=== PATIENT | male | born 1950 | race Caucasian/White ===

== ENCOUNTER 2016-11-22 06:55 | Outpatient (CLI) | payer BC ==
[~2016-11-22] VITALS: Ht 177.8 cm; Wt 138.6 kg
--- NOTE | ~2016-11-22 | HEMODYNAMI ---
PATIENT:KENDALL TERRELL MEDICAL RECORD: [id number] : 54 LOCATION:[facility] ADMISSION DATE: 11/22/16 Generatedon:11/22/20169:57 Patient name: KENDALL TERRELL Patient #: [id number] SSN: D OB: 1950 Date of study: 11/22/2016 Page: Of Hemodynamic Procedure Report Patient Data Patient Demographics Procedure consent was obtained First Name: KENDALL Gender: Male Last Name: XANDER : 1950 Middle Initial: A Age: 66 year(s) Patient #: [id number] Race: Ethnicity: or Additional ID: [id number] Contact details [address]: [address] [place] [address] State: [place] City: [place] Zip code: [address] Past Medical History Allergies: No known allergies Admission Admission Data Admission Date: 11/22/2016 Admission Time: 6:55 Admit Source: Other Lab Results Lab Result Date: 11/22/2016 Lab Result Time: 0:00 Biochemistry Name Units Result Min Max BUN mg/dl 16 --(---*)-- 7 18 Creatinine mg/dl 1.1 --(--*-)-- 0.6 1.3 CBC Name Units Result Min Max Hemoglobin g/dl 14.6 --(-*--)-- 13.5 17.5 Procedure Procedure Types Cath Procedure Diagnostic Procedure C [facility] w/Coronaries Miscellaneous Procedures Moderate Sedation up to 15 minutes Procedure Description Procedure Date Procedure Date: 11/22/2016 Procedure Start Time: 9:35 Procedure End Time: 9:55 Procedure Staff Name Function Jefry Cabrera MD Performing Physician Alber Zee RN Nurse Valentín Hernandez RT Monitor Matthew Roger RT Scrub Pamela Hanks RT Monitor Procedure Data Cath Procedure Fluoroscopy Diagnostic fluoroscopy Total fluoroscopy Time: 2.5 time: 2.5 min min Diagnostic fluoroscopy Total fluoroscopy dose: 894 dose: 894 mGy mGy Contrast Material Contrast Material Type Amount (ml) Isovue 300 68 Entry Location Entry Primary Successful Side Size Upsize Upsize Entry Closure Ram ccessful Closure Location (Fr) 1 (Fr) 2 (Fr) Remarks Device Remarks Radial Right 6 Fr Mechanical TR band artery Short Compression Estimated blood loss: 10 ml Diagnostic catheters Device Type Used For End Catheter Placement Cordis RBL 4 catheter (NO Ventriculography CHARGE) Procedure Complications No complications Procedure Medications Medication Administration Route Dosage Oxygen NC 2 l/min Lidocaine 2% added to field 20 Heparin Flush Bag added to field 2 bags (1000units/500ml NS) 0.9% NaCl I.V. 100 ml/hr Radial Cocktail added to field 1 syringe (Verapomil 2mg/Nitro 400mcg/Heparin 1500units) Versed I.V. 1 mg Fentanyl I.V. 50 mcg Versed I.V. 1 mg Fentanyl I.V. 50 mcg Radial Cocktail added to field 1 syringe (Verapomil 2mg/Nitro 400mcg/Heparin 1500units) Versed I.V. 1 mg Fentanyl I.V. 50 mcg Versed I.V. 1 mg Fentanyl I.V. 50 mcg Hemodynamics Rest HGB: 14.6 (g/dl) Heart Rate: 63 (bpm) Pressure Samples Time Site Value (mmHg) Purpose Heart Use Rate(bpm) 9:42 LV 158/-1,16 Snapshot 46 9:42 LV 153/0,23 Snapshot 53 Gradients Valve Time Site Site Mean SEP/DFP Peak To Heart Use 1 2 (mmHg) (sec/min) Peak Rate (mmHg) (bpm) Aortic 9:43 LV AO 45 Snapshots Pre Cath Intra NCS Post Cath Vital Signs Time Heart Resp SPO2 NIBP (mmHg) Rhythm Pain Sedation Rate (ipm) (%) Status Level (bpm) 9:14:40 63 20 96 140/89(123) NSR 0 (11) 10(A) , No pain 9:18:54 68 15 98 141/83(109) NSR 0 (11) 10(A) , No pain 9:23:10 58 16 95 136/86(110) NSR 0 (11) 10(A) , No pain 9:27:22 59 17 94 137/83(114) NSR 0 (11) 10(A) , No pain 9:31:36 66 15 95 138/87(112) NSR 0 (11) 10(A) , No pain 9:35:52 62 16 95 134/83(108) NSR 0 (11) 10(A) , No pain 9:40:08 65 16 95 138/81(119) NSR 0 (11) 9(A) , No pain 9:44:24 71 16 94 122/77(106) NSR 0 (11) 9(A) , No pain 9:48:34 72 17 94 130/83(99) NSR 0 (11) 9(A) , No pain 9:52:46 67 15 95 132/81(108) NSR 0 (11) 10(A) , No pain Medications Time Medication Route Dose Verified Delivered Reason Notes E ffectiveness by by 9:24:23 Oxygen NC 2 l/min Jefry Buffie used for Rick Zee RN procedure 9:24:32 Lidocaine 2% added 20ml Jefry Jefry for local to vial Rick Cabrera MD anesthetic field 9:24:39 Heparin Flush added 2 bags Jefry Jefry used for Bag to Rick Cabrera MD procedure (1000units/500ml field NS) 9:24:49 0.9% NaCl I.V. 100 Jefry Buffie Per ml/hr Rick Zee RN physician 9:24:56 Radial Cocktail added 1 Jefry Buffie (Verapomil to syringe Rick Zee RN 2mg/Nitro field 400mcg/Heparin 1500units) 9:31:40 Versed I.V. 1 mg Jefry Buffie for sedation Rick Zee RN 9:31:46 Fentanyl I.V. 50 mcg Jefry Buffie for sedation Rick Zee RN 9:36:56 Versed I.V. 1 mg Jefry Buffie for sedation Rick Zee RN 9:37:00 Fentanyl I.V. 50 mcg Jefry Buffie for sedation Rick Zee RN 9:41:21 Radial Cocktail added 1 Jefry Jefry for (Verapomil to syringe Rick Cabrera MD vasodilation 2mg/Nitro field 400mcg/Heparin 1500units) 9:41:26 Versed I.V. 1 mg Jefry Buffie for sedation Rick Zee RN 9:41:29 Fentanyl I.V. 50 mcg Jefry Buffie for sedation Rick Zee RN 9:47:05 Versed I.V. 1 mg Jefry Buffie for sedation Rick Zee RN 9:47:09 Fentanyl I.V. 50 mcg Jefry Amarilisie for sedation Rick Zee certified energy manager Log Time Note 9:00:06 Informed consent obtained and on chart 9:00:11 Diagnostic Cath Status : Elective 9:00:47 Admit Source: Other 9:01:11 ACC Patient presents with Stable Angina CCS Anginal Class 1--Ordinary physical activity does not cause angina, angina occurs with strenuos, rapid, or prolonged activity.. 9:01:18 Valentín Hernandez RT(R) (CV) sent for patient. Start room use. 9:01:20 Time tracking: Regular hours 9:01:30 Plan of Care:Hemodynamics will remain stable., Cardiac rhythm will remain stable., Comfort level will be maintained., Respiratory function will remain adequate., Patient/ family verbilizes understanding of procedure., Procedure tolerated without complication., Recovers from procedure without complications.. 9:09:24 Patient received from Pre/Post Procedure Room to CCL 2 Alert and oriented. Tansferred to table in Supine position. 9:09:26 Warm blankets applied, and hosea hugger turned on for patient comfort. 9:09:28 Correct patient and procedure confirmed by team. 9:13:34 ECG and BP/O2 sat monitors applied to patient. 9:13:35 Vital chart was started 9:13:42 Baseline sample Acquired. 9:14:08 Rhythm: sinus rhythm 9:14:15 Full Disclosure recording started 9:14:34 H&P Date Dictated: 11/21/2016 Within 30 days and on chart., H&P Addendum completed by physician on day of procedure. (MUST COMPLETE FOR ALL OUTPATIENTS). 9:14:36 Pre-procedure instructions explained to patient. 9:14:38 Pre-op teaching completed and patient verbalized understanding. 9:14:40 Family in waiting room. 9:14:42 Patient NPO since Midnight. 9:14:51 Patient allergic to No known allergies 9:15:01 Is the patient allergic to Iodine/contrast media? No. 9:15:11 Is patient on blood thinner?No 9:15:15 Patient diabetic? No. 9:15:32 Previous problem with sedation/anesthesia? No ? 9:15:35 Snore? Yes 9:15:36 Sleep apnea? Yes 9:15:38 Deviated septum? No 9:15:39 Opens mouth fully? Yes 9:15:41 Sticks out tongue? Yes 9:15:44 Airway obstruction? No ? 9:15:47 Dentures? No ? 9:17:01 Pre procedure: right dorsailis pedis pulse 1+ Palpable, but thready & weak; easily obliterated 9:17:08 Modified Rosendo's test Ulnar > 7 seconds. 9:17:12 Patient pain scale 0/10 ?. 9:17:19 IV patent on arrival in left hand with 0.9% NaCl at [facility]. 9::51 Lab Result : Creatinine 1.1 mg/dl 9::51 Lab Result : BUN 16 mg/dl 9::51 Lab Result : Hemoglobin 14.6 g/dl 9:21:57 Lab results completed and on chart. 9:22:03 Right Radial & Right Groin area was prepped with chlora-prep and draped in sterile fashion 9:22:05 Alarms reviewed by R. N. 9:22:06 Sharps counted by scrub and verified by R.N. 9:22:23 Use device set Radial Dx 9:22:28 Acist Syringe opened to sterile field. 9:22:28 Medline Cath Pack opened to sterile field. 9:22:30 Bag Decanter opened to sterile field. 9:22:31 Terumo 6Fr Slender Glidesheath opened to sterile field. 9:22:32 St Martin 260cm J .035 wire opened to sterile field. 9:22:33 Acist Hand Control opened to sterile field. 9:22:34 Acist Manifold opened to sterile field. 9:22:36 Tegaderm 4 x 4 opened to sterile field. 9:24:23 Oxygen 2 l/min NC was administered by Alber Zee RN; used for procedure; 9:24:32 Lidocaine 2% 20ml vial added to field was administered by Jefry Cabrera MD; for local anesthetic; 9:24:39 Heparin Flush Bag (1000units/500ml NS) 2 bags added to field was administered by Jefry Cabrera MD; used for procedure; 9:24:49 0.9% NaCl 100 ml/hr I.V. was administered by Alber Zee RN; Per physician; 9:24:56 Radial Cocktail (Verapomil 2mg/Nitro 400mcg/Heparin 1500units) 1 syringe added to field was administered by Alber Zee RN; ; 9:31:02 Physician arrived 9::19 --------ALL STOP TIME OUT------ 9:31:20 Final Timeout: patient, procedure, and site verified with staff and physician. All members of the team are in agreement. 9::22 Right Radial & Right Groin site verified by team. 9:: Physical assessment completed. ASA score P 2 - A patient with mild systemic disease as per Jefry Cabrera MD. ::31 Sedation plan: IV Moderate Sedation Versed, Fentanyl 9::40 Versed 1 mg I.V. was administered by Alber Zee RN; for sedation; 9::46 Fentanyl 50 mcg I.V. was administered by Alber Zee RN; for sedation; 9:35:27 Zero performed for pressure channel P1 9:35:38 Procedure started. 9:35:52 Local anesthetic to right radial artery with Lidocaine 2% by Jefry Cabrera MD.INITIAL ACCESS ONLY 9:36:56 Versed 1 mg I.V. was administered by Alber Zee RN; for sedation; 9:36:58 Zero performed for pressure channel P1 9:37:00 Fentanyl 50 mcg I.V. was administered by Alber Zee RN; for sedation; 9:38:31 Cook 21G 4cm Radial Needle opened to sterile field. 9:38:49 A 6 Fr Short sheath was inserted into the Right Radial artery 9:41:21 Radial Cocktail (Verapomil 2mg/Nitro 400mcg/Heparin 1500units) 1 syringe added to field was administered by Jefry Cabrera MD; for vasodilation; 9:41:26 Versed 1 mg I.V. was administered by Alber Zee RN; for sedation; 9:41:29 Fentanyl 50 mcg I.V. was administered by Alber Zee RN; for sedation; 9:44:12 A Cordis RBL 4 catheter (NO CHARGE) was advanced over the wire and used for Ventriculography. 9:44:17 LV gram done using ENCISO 9:44:23 EF : 50 % 9:44:28 LCA angiography performed. 9:47:05 Versed 1 mg I.V. was administered by Alber Zee RN; for sedation; 9:47:09 Fentanyl 50 mcg I.V. was administered by Alber Zee RN; for sedation; 9:47:31 RCA angiography performed. 9:52:04 Catheter removed. 9:52:37 Terumo TR Band Large opened to sterile field. 9:52:55 Sheath removed intact; hemostasis achieved with Mechanical Compression to the Right Radial artery. 9:52:58 Procedure ended.(Physican Out) 9:53:15 Fluoroscopy time 02.50 minutes. 9:53:22 Fluoroscopy dose: 894 mGy 9:53:22 Flurop Dose total: 894 9:53:28 Contrast amount:Isovue 300 68ml. 9:53:29 Sharps counted by scrub and verified by R.N. 9:53:33 TR band inflated with 12cc of air. 9:53:35 Insertion/operative site no bleeding no hematoma. 9:53:44 Post Procedure Pulses reassessed and unchanged 9:53:50 Post-procedure physical assessment completed. ASA score P 2 - A patient with mild systemic disease as per Jefry Cabrera MD. 9:53:53 Post procedure rhythm: unchanged. 9:53:56 Estimated blood loss: 10 ml 9:53:59 Post procedure instruction explained to patient.Patient verbalizes understanding. 9:54:10 Procedure type changed to Cath procedure, Diagnostic procedure, LHC, LHC w/Coronaries, Miscellaneous Procedures, Moderate Sedation up to 15 minutes 9:54:12 Procedure and supply charges have been captured, reviewed, submitted and are correct. 9:55:03 Procedure Complication : No complications 9:55:06 Vital chart was stopped 9:55:11 See physician's report for complete and final results. 9:55:18 Report given to Pre/Post Procedure Room. 9:55:38 Patient transfered to Pre/Post Procedure Room with Stretcher. 9:55:41 Procedure ended. 9:55:41 Full Disclosure recording stopped 9:55:45 End room use (Document Last) Device Usage Item Name Manufacture Quantity Catalog Hospital Part Current Minimal Lot# / Number Charge Number Stock Stock Serial# Code Acist Acist 1 92710 [id number] 163257 178538 20 [employer] Medline Cardinal 1 [id number] 399039 32190 172859 5 Cath Pack Health Bag Microtek 1 2001 145427 92177 215679 5 Decanter [employer] Inc[employer] Terumo 6Fr Terumo 1 [id number] 485076 428369 160050 [address] [facility] Martin 1 950310 079243 029613 077469 30 260cm J .035 wire Acist Hand Acist 1 25660 867023 758880 621407 5 [employer] Inc Acist Acist 1 36197 034993 938236 430158 5 Manifold [employer] Inc Tegaderm 4 3M 1 1626W 560796 681965 675610 5 x 4 Cook 21G Cook Medical 1 [id number] 967356 348955 098410 5 4cm Radial Needle Cordis RBL Cardinal 1 [id number] 181821 229184 5 4 catheter Health (NO CHARGE) Terumo TR Terumo 1 [id number] 194054 323946 119079 40 Band Large Signature Audit [place] Stage Time Signature Unsigned Intra-Procedure 11/22/2016 Pamela Hanks 9:57:37 AM RT(R) Signatures Monitor : Valentín Hernandez RT Signature : Date : Time : Monitor : Pamela Hanks Signature : RT Date : Time : [facility] [address] [place] [address]
[2016-11-22 07:38] VITALS: BP 129/74; Ht 177.8 cm; Wt 138.6 kg
[2016-11-22] MEDS ORDERED: LEVOXYL75 MCG PO (07:42)
[2016-11-22] MEDS ORDERED: PAXIL20 MG PO (07:42)
[2016-11-22] MEDS ORDERED: OMEPRAZOLE20 M1 PO (07:43)
[2016-11-22] MEDS ORDERED: NORVASC2.5 MG PO (07:43)
[2016-11-22] MEDS ORDERED: PRAVACHOL40 MG PO (07:44)
[2016-11-22] MEDS ORDERED: BAYER CHEWABLE81 MG PO (07:44)
[2016-11-22] MEDS ORDERED: ATIVAN1 MG PO (07:44)
[2016-11-22] MEDS ORDERED: NAPROSYN500 MG PO (07:45)
[2016-11-22 08:22] LABS: BASOPHILS 0.4 % (0.0-2.0); EOSINOPHILS 1.6 % (0-7); HEMATOCRIT 43.4 % (42.0-54.0); HEMOGLOBIN 14.6 g/dL (13.5-17.5); IMMATURE GRANULOCYTES 0.2 % (0-5); LYMPHOCYTES 18.1 % (15-50); MCH 31.3 pg (26.0-34.0); MCHC 33.6 g/dL (31.0-37.0); MCV 93.1 fL (80.0-100.0); MEAN PLATELET VOLUME 11.3 fL (7.4-10.4); MONOCYTES 7.6 % (2-11); NEUTROPHILS 72.1 % (40-80); PLATELET COUNT 209 10x3/uL (130-400); RBC 4.66 10x6/uL (4.20-6.10); RDW 12.8 % (11.5-14.5); WBC 9.2 10x3/uL (4.8-10.8)
[2016-11-22 08:32] LABS: ANION GAP 12.7 mmol/L (8-16); CARBON DIOXIDE 27.1 mmol/L (21.0-32.0); CREATININE - SERUM 1.1 mg/dL (0.6-1.3); POTASSIUM - SERUM 3.8 mmol/L (3.5-5.1)
[2016-11-22] MEDS ORDERED: ISOSORBIDE MONO30 M1 PO (10:26)
--- NOTE | 2016-11-22 10:30 | NUR ---
HR 58 BP 118/54 NO DISTRESS NOTED TR BAND TO R/WRIST CDI NO BLEEDING NO HEMATOMA NOTED. INSTRUCTED PATIENT TO KEEP RUE STRAIGHT NO BENDING OR FLEXING OF WRIST
--- NOTE | 2016-11-22 11:00 | NUR ---
1100 RESTING QUIETLY WITH EYES CLOSED RESPIRATIONS EVEN AND UNLABORED VSS WITH NO DISTRESS NOTED TR BAND REMAINS TO R/WRIST CDI NO BLEEDING NO HEMATOMA NOTED 1130 NO CHANGE IN ASSESSMENT CONTINUES TO SLEEP
--- NOTE | 2016-11-22 12:00 | NUR ---
2 CC AIR REMOVED FROM TR BAND WITH NO BLEEDING NO HEMATOMA NOTED CHEST PAIN IS DENIED REPOSITIONED TO SITTING WITH HOB UP 45 DEGREES WITH SANDWICH AND SODA 1230 2 CC AIR REMOVED FROM TR BAND WITH NO BLEEDING NO HEAMTAOM NOTED PATIENT UP TO GET DRESSED FOR DISCHARGE HOME 1300 TR BAND REMOVED WITH NO BLEEDING NO HEMATOMA NOTED. DISCHARGE GONE OVER WITH PATIENT AND LEFT VIA WC TO PARKING
--- NOTE | 2016-11-27 08:17 | OP ---
PATIENT NAME: KENDALL TERRELL MEDICAL RECORD: [id number] :54 LOCATION:D.CAT ADMISSION DATE: SURGEON: JOSEF TEIXEIRA M.D. DATE OF OPERATION: 11/22/2016 Catheterization Report REFERRING PHYSICIAN: Surya Milner MD in [place], [place]. PROCEDURES PERFORMED: 1. Selective coronary angiography. 2. Left heart catheterization with ventriculogram. INDICATION: A 66-year-old gentleman with history of coronary artery disease presents with accelerating angina. EQUIPMENT USED: A 5-Turkmen Wilian catheter. TECHNIQUE: A 6-Turkmen sheath was inserted in retrograde fashion in the right radial artery. Next, selective coronary angiography was performed in standard 5-Turkmen Wilian catheter. Left heart catheterization performed using the Wilian catheter as well. CORONARY ANATOMY: 1. Left main: Left main trunk is moderate in caliber. It gives rise to the LAD and circumflex. There is no significant stenosis. 2. LAD: This is a moderate caliber vessel. It gives rise to a large diagonal branch in the proximal segment. At the bifurcation point, the LAD appears to have an 80% stenosis. At this point, the vessel is diffusely diseased ____. There appeared to be multiple lesions that are 70% to 80%. The first diagonal branch is hazy in some views and appears to have at least a 67% stenosis in the proximal segment. 3. Circumflex: This vessel is small to moderate in caliber. The proximal vessel has an ulcerated 90% stenosis. At this point, it gives rise to 3 small branches. They are all diffusely diseased. 4. Right coronary artery: This vessel is quite large and dominant. It provides the PDA and distal segment. The posterolateral branch has a 70% stenosis just beyond its origin. The proximal mid vessel has mild irregularities, but nothing worse than 30%. 5. Left ventricle: Left ventricle is normal in size. No wall motion abnormalities are noted. 6. Ejection fraction is lower limits of normal around 50%. IMPRESSION: 1. High grade disease involving the LAD and circumflex. 2. Low normal left ventricular function. RECOMMENDATIONS: I suspect these symptoms from the LAD and circumflex. However, the LAD has a quite long lesion. Stenting could be considered. I do have some concerns that the circumflex may be too small for bypass grafting. I will ask Dr. Mclaughlin to review the case. He is not deemed a surgical candidate. We will consider multivessel stenting in that point. TRANSINT:[id number] Voice Confirmation ID: [id number] DOCUMENT ID: [id number] OPERATIVE REPORT [id number] KENDALL TERRELL,JOSEF Wu M.D. at 0817 CC: [id number] DICTATION DATE: 11/22/16 0958 SHEEP HERDER: 11/22/16 1824 [facility] CLI 11/22/16 [id number] [place] [address]
== END 2016-11-22 13:08 | disposition home or self-care (01) ==
LOC: D.CATH 06:55
PROVIDERS: Internal Medicine Cardiovascular Disease
DX: I25.119 Atherosclerotic heart disease of native coronary artery with unspecified angina pectoris (principal); R06.02 Shortness of breath; I10 Essential (primary) hypertension

== ENCOUNTER → 2016-11-28 12:12 | Outpatient (CLI) | payer BC ==
[2016-11-22 07:38] VITALS: BMI 43.8
[~2016-11-28 12:12] MED LIST: ATIVAN1 MG PO; BAYER CHEWABLE81 MG PO; BENADRYL25 MG PO; COLACE100 MG PO; CORDARONE200 MG PO; HEMOCYTE PLUS C1 CAP PO; HYDROCODONE-APA1 TAB PO; ISOSORBIDE MONO30 M1 PO; KLOR-CON 1010 MEQ PO; LASIX40 MG PO; LEVOXYL75 MCG PO; LOPRESSOR25 MG PO; MIRALAX17 GM PO; NAPROSYN500 MG PO; NORVASC2.5 MG PO; OMEPRAZOLE20 M1 PO; PAXIL20 MG PO; PRAVACHOL40 MG PO; SUPER B COMPLE150 MG PO
[2016-11-29 09:18] LABS: HEPATITIS C ANTIBODY <0.1 (0.0-0.9)
== END | disposition home or self-care (01) ==
LOC: D.US 12:12
PROVIDERS: Internal Medicine Cardiovascular Disease
DX: Z01.812 Encounter for preprocedural laboratory examination (principal); I65.23 Occlusion and stenosis of bilateral carotid arteries

== ENCOUNTER 2016-12-04 05:06 | Inpatient (IN) | payer BC ==
--- NOTE | 2016-12-02 12:51 | HP ---
PATIENT: KENDALL TERRELL MEDICAL RECORD: [id number] ACCOUNT: [id number] LOCATION:[facility] : 54 ADMISSION DATE: 12/04/16 HISTORY AND PHYSICAL EXAMINATION NameHILARIA TERRELL (66yo, M) ID# [id number]. Date/Time11/28/2016 10:43BFIXI1952Service Dept.[facility] ClinicProviderEDROB LOMELI MDInsuranceMed Primary: [facility]VANTAGE (PPO) Insurance # : [id number] Policy/Group # : [id number] PCP : RANDY DUARTE Referring Provider Name : RANDY DUARTE Employer Name : [employer] Prescription: MDIM - Member is eligible. Chief Complaint Coronary artery disease Patient's Care Team Primary Care Provider (): RANDY DUARTE: [address] [place], [place] [address], , Referring Provider (): RANDY DUARTE: [address] [place], [place] [address], , Healthcare Management Consultant: JOSEF TEIXEIRA MD Patient's Pharmacies [id number] ([place]): [address], [place] [address], , Vitals BP:100/70 sitting R arm 11/28/2016 10:41 am 102/60 sitting L arm 11/28/2016 10:41 amHR:66R/R 11/28/2016 10:41 amHt:5 ft 10 in 11/28/2016 10:39 amWt:297 lbs 11/28/2016 10:39 amBMI:42.6 11/28/2016 10:39 amAllergies Reviewed Allergies NKDAMedications Reviewed Medications amLODIPine 2.5 mg tiuzgx42/27/17 filledMEDIMPACTaspirin 81mg11/28/16 enteredCindy BrownFluvirin [id number] 45 mcg (15 mcg x 3)/0.5 mL intramuscular hyjcpnkjgt55/17/16 filledMEDIMPACTisosorbide mononitrate ER 30 mg tablet,extended release 24 hr11/22/16 filledMEDIMPACTlevothyroxine 75 mcg svdvvi33/19/17 filledMEDIMPACTLORazepam 0.5 mg kicbxb32/30/16 filledMEDIMPACTLORazepam 1 mg kifcwo76/21/17 filledMEDIMPACTnaproxen 500 mg /20/17 filledMEDIMPACTomeprazole 20 mg capsule,delayed vtfcpoy06/25/17 filledMEDIMPACTomeprazole 40 mg capsule,delayed /21/16 filledMEDIMPACTPARoxetine 20 mg ftomdg78/11/17 filledMEDIMPACTpravastatin 40 mg yqynah33/19/17 filledMEDIMPACTProblems Reviewed Problems Coronary atherosclerosis - Onset: 11/27/2016 Family History Discussed Family History Mother- Myocardial infarctionFather- Malignant tumor of stomachSocial History Discussed Social History Cardiology Family history of heart disease?: Y Smoking Status: Never smoker High Cholesterol: Y HISTORY AND PHYSICAL [id number] KENDALL TERRELL High blood pressure: Y Exercise level: None Diabetes: N Surgical History Reviewed Surgical History Other - gallbladder Other - cyst on neck removed Other - hernia surgery Other - tonsilectomy Past Medical History Discussed Past Medical History Chest Pain: Y Coronary Artery Disease: Y Heart Disease: Y Shortness of Breath: Y Valve disease: Y Documents for Discussion N/A Screening None recorded. HPI Coronary Artery Disease F/U Reported by patient. Severity: chest discomfort with household activities/yard work ("tightness in chest when I am doing something.") Associated Symptoms: chest pain with exertion; dyspnea with exertion angina pectoris ROS Patient reports exercise intolerance but reports no fever, no night sweats, no significant weight gain, and no significant weight loss. He reports chest pain on exertion, arm pain on exertion, and shortness of breath when walking but reports no shortness of breath when lying down, no palpitations, and no known heart murmur. He reports shortness of breath but reports no cough, no wheezing, and no coughing up blood. He reports no dry eyes, no irritation, and no vision change. He reports no difficulty hearing and no ear pain. He reports no frequent nosebleeds and no nose/sinus problems. He reports no sore throat, no bleeding gums, no snoring, no dry mouth, no mouth ulcers, no oral abnormalities, and no teeth problems. He reports no jugular vein distension and no swollen gland s . He reports no abdominal pain, no vomiting, normal appetite, no diarrhea, not vomiting blood, no nausea, and no constipation. He reports no incontinence, no difficulty urinating, no hematuria, and no increased frequency. He reports no muscle aches, no mu s sheila weakness, no arthralgias/joint pain, no back pain, and no swelling in the extremities. He reports no abnormal mole, no jaundice, and no rashes. He reports no loss of consciousness, no weakness, no numbness, no seizures, no dizziness, and no headaches. He reports no depression, no sleep disturbances, feeling safe in relationship, and no alcohol abuse. He reports no fatigue. He reports no swollen glands and no bruising. He reports no runny nose, no sinus pressure, no itching, no hives, and no frequent sn eezing. ROS as noted in the HPI Physical Exam Patient is a 66-year-old male. Constitutional: General Appearance healthy-appearing and obese. Level of Distress NAD. Ambulation ambulating normally. HISTORY AND PHYSICAL [id number] KENDALL TERRELL Cardiovascular: Apical Impulse not displaced or no thrill. Heart Auscultation normal s1 and s2; no murmurs, rubs, or gallops; and RRR. Arterial Pulses no abdominal aorta bruits, femoral bruits, or popliteal bruits and 2+ bilateral, carotid 2+ bilateral, femoral 2+ bilateral, popliteal 2+ bilateral, and dorsalis pedis 2+ bilateral. Edema no edema or varicosities. Lungs: Repiratory Effort no dyspnea. Percussion no hyperresonance or dullness or flatness. Auscultation no wheezing, rhonchi, or rales / crackles and breathing sounds normal, good air movement, and CTA except as noted. Abdomen: Bowl Sounds normal. Inspection and Palpation no tenderness, guarding, masses, or rebound tenderness and soft and non-distended. Liver non-tender and no hepatomegaly. Spleen non-tender and no splenomegaly. Hernia none palpable. Musculoskeletal System: Gait And Stance normal gait and stance. Digits and Nails normal nails and no cyanosis. Neurologic: Cranial Nerves grossly intact. Reflexes DTRs 2+ bilaterally throughout. Sensation grossly intact. Lymph Nodes: Lymph Nodes no cervical LAD, supraclavicular LAD, axillary LAD, or inguinal LAD. Eyes: Lids and Conjunctivae no discharge or pallor and non-injected. Pupils PERRLA. Cornea grossly intact. EOM EOMI. Lens clear. Sclerae non-icteric. Neck: Neck no masses, enlarged lymph nodes, or carotid bruits and supple and trachea midline. Thyroid no enlargement or nodules and non-tender. Skin: Inspection and Palpation no rash, lesions, ulcers, jaundice, or abnormal nevi. Assessment / Plan coronary artery disease with angina pectoris 1. Coronary atherosclerosis I25.119: Atherosclerotic heart disease of [place] coronary artery with unspecified angina pectoris Discussion Notes I have discussed the patient's disease process with him and his in detail as well as the alternative treatment. We discussed coronary artery bypass and the expected benefits and risk which included bleeding ,infection, stroke, , and the imponderables.they understand all of the above and he wishes to proceed with planned surgery. We will obtain carotid Dopplers and hepatitis screen today Return to Office None recorded. HISTORY AND PHYSICAL [id number] KENDALL TERRELL EDWARD MD at 1251 CC: [id number] DICTATION DATE: 11/28/16 1015 STRATEGY CONSULTANT: AIDEN 11/29/16 1243 PRE IN [facility] [address] [facility] [place] [address]
[2016-12-03 15:22] LABS: BASOPHILS 0.4 % (0.0-2.0); HEMATOCRIT 44.2 % (42.0-54.0); HEMOGLOBIN 15.2 g/dL (13.5-17.5); IMMATURE GRANULOCYTES 0.2 % (0-5); LYMPHOCYTES 27.2 % (15-50); MCH 31.8 pg (26.0-34.0); MCHC 34.4 g/dL (31.0-37.0); MCV 92.5 fL (80.0-100.0); MEAN PLATELET VOLUME 10.7 fL (7.4-10.4); MONOCYTES 7.2 % (2-11); RBC 4.78 10x6/uL (4.20-6.10); RDW 12.5 % (11.5-14.5); WBC 9.1 10x3/uL (4.8-10.8)
[2016-12-03 15:29] LABS: PLATELET COUNT 283 10x3/uL (130-400)
[2016-12-03 15:30] LABS: APPEARANCE CLEAR (CLEAR); BILIRUBIN NEGATIVE (NEGATIVE); COLOR YELLOW (YELLOW); GLUCOSE NEGATIVE (NEGATIVE); KETONE NEGATIVE (NEGATIVE); LEUKOCYTE ESTERASE NEGATIVE (NEGATIVE); NITRITE NEGATIVE (NEGATIVE); PROTEIN NEGATIVE (NEGATIVE); UROBILINOGEN NORMAL (NORMAL)
[2016-12-03 15:34] LABS: APTT 27.8 SECONDS (22.8-39.4); INR 1.03 (0.85-1.17); PROTIME 13.4 SECONDS (11.6-15.0)
[2016-12-03 15:45] LABS: HEMOGLOBIN A1C 5.3 % (4.8-6.0)
[2016-12-03 15:49] LABS: ANION GAP 11.1 mmol/L (8-16); BILIRUBIN - TOTAL 0.36 mg/dL (0.2-1.3); CALCIUM 9.1 mg/dL (8.5-10.1); CARBON DIOXIDE 29.2 mmol/L (21.0-32.0); CREATININE - SERUM 1.2 mg/dL (0.6-1.3); PHOSPHOROUS 3.9 mg/dL (2.5-4.9); POTASSIUM - SERUM 4.3 mmol/L (3.5-5.1); PROTEIN - SERUM 7.6 g/dL (6.4-8.2); T4 THYROXIN - FREE 1.11 ng/dL (0.76-1.46); THYROID STIMULATING HORMONE 1.27 uIU/mL (0.36-3.74); URIC ACID 7.6 mg/dL (2.6-7.2)
[2016-12-03 17:30] LABS: COLD SCREEN @ 4 DEGREES 1+ (NEGATIVE); COLD SCREEN ROOM TEMP NEGATIVE (NEGATIVE)
[2016-12-04] VITALS (36 sets, daily range): BP systolic 92–122; BP diastolic 54–84; BMI 42.7
[~2016-12-04] VITALS: Ht 177.8 cm; Wt 138.7 kg
[~2016-12-04 05:06] MED LIST changes: -BENADRYL25 MG PO; -COLACE100 MG PO; -CORDARONE200 MG PO; -HEMOCYTE PLUS C1 CAP PO; -HYDROCODONE-APA1 TAB PO; -KLOR-CON 1010 MEQ PO; -LASIX40 MG PO; -LOPRESSOR25 MG PO; -MIRALAX17 GM PO; -SUPER B COMPLE150 MG PO
[2016-12-04] MEDS ORDERED: SUPER B COMPLE150 MG PO (06:00)
[2016-12-04] MEDS ORDERED: BENADRYL25 MG PO (06:01)
[2016-12-04 08:57] LABS: PLT FUNCT.(P2Y12) PLAVIX 233 PRU (194-418)
[2016-12-04 15:13] LABS: CALCIUM 7.7 mg/dL (8.5-10.1); CARBON DIOXIDE 26.9 mmol/L (21.0-32.0); CHLORIDE - SERUM 106 mmol/L (98-107); SODIUM 146 mmol/L (136-145); UREA NITROGEN 11 mg/dL (7-18); eGFR NON AFRICAN AMERICAN 80 mL/min (90-120)
[2016-12-04 15:18] LABS: CALC OSMOLALITY 295 mosm/kg (275-300); GLUCOSE 213 mg/dL (74-106); POTASSIUM - SERUM 3.6 mmol/L (3.5-5.1)
[2016-12-04 15:20] LABS: HEMOGLOBIN 12.8 g/dL (13.5-17.5); MCH 31.1 pg (26.0-34.0); MCHC 33.7 g/dL (31.0-37.0); MCV 92.5 fL (80.0-100.0); MEAN PLATELET VOLUME 10.8 fL (7.4-10.4); RBC 4.11 10x6/uL (4.20-6.10); RDW 12.6 % (11.5-14.5); WBC 28.1 10x3/uL (4.8-10.8)
[2016-12-04 15:21] LABS: APTT 33.8 SECONDS (22.8-39.4); INR 1.44 (0.85-1.17); PROTIME 17.5 SECONDS (11.6-15.0)
--- NOTE | 2016-12-04 15:37 | NUR ---
RECIEVED PT TO ROOM. ASSESSMENT PER FLOWSHEET. DR LOMELI HERE.
--- NOTE | 2016-12-04 16:30 | NUR ---
FLUID CHALLENGE STARTED PER ORDER.
--- NOTE | 2016-12-04 18:30 | NUR ---
DR LOMELI UPDATED ON PT AND UPDATED ABGS RESULTED. NO NEW ORDERS OBTAINED.
--- NOTE | 2016-12-04 19:16 | NUR ---
REPORT RECIEVED. ASSESSMENT COMPLETE PER FLOW SHEET. PT AWAKE ALERT DISORIENTED TO TIME AND SITUATION. ETT PATENT SIZE 8 LIP LINE LEFT AT 26 AT LIP OGT TO LIS GREEN BILE NOTED. ORAL ENDOTRACH CARE ADM. EYES PERRLA 3MM BRISK. VENT SIMV RR 6 O2 40% TV 700 PEEP 5 PT RR 18 O2 SAT 98% RUL RML JC CRACKLES HEARD BILAT LOWER LOBES DEMINISHED. HEART S1S2 HR 100 PACED TPM PATENT DRSG CDI MIDSTERNAL DRSG CDI TPM DDD RATE OF 100 AV INTERVAL 140, AMA 10 VMA 10 SENSITIVITY 2.0. L SUBCLAVIAN PATENT DRSG CDI REFER TO INFUSION SHEET FOR COMPLETE INFUSIONS. L IJ SWAN LACEY PATENT DRSG AT 55CM LOCKED AND SECURED. R RADIAL ART LINE WITH GOOD WAVE FORM EXTREMETY PINK WITH GOOD SENSATION WRIST PROTECTOR ON DRSG CDI. R BRACHIAL PULSE PALP +2 L RADIAL PULSE PALP +2 BILAT PEDAL PULSES FOUND VIA DOPPLER BILAT LOWER EXTREMETIES GENERALIZED EDEMA NOTED ELEVATED ON PILLOWS. R LEG FUENTES X2 NOTED BLOODY DRAINAGE NOTED. DRSG CDI. L LEG ARNALDO SCD ON. SUBSTERNAL CT X3 NOTED BLOODY DRAINAGE NOTED. BRUNSON PATENT SAMMY URINE NOTED. REPOSITIONED ON R SIDE. VSS. WILL CONTINUE TO MONITOR.
--- NOTE | 2016-12-04 19:40 | NUR ---
PT PLACED ON CPAP TRIAL TOLERATING WELL RR 18 RESP AT BEDSIDE. ORAL ENDOTRACH CARE ADM.
--- NOTE | 2016-12-04 20:24 | NUR ---
RESP AT BEDSIDE. ABG OBTAINED K 3.5 WILL INFUSE PER PROTOCOL. NIFF AND VC PASS PER RT. ORAL ENTRACH CARE ADM. OGT TO SUCTION NO OP. OGT AND ETT REMOVED C/O DIFFICULTY. O2 SAT 98% RR 22.
--- NOTE | 2016-12-04 21:20 | NUR ---
PT C/O OF NAUSEA GIEN PRN ZOFRAN AND REGLAN.
--- NOTE | 2016-12-04 23:29 | NUR ---
REASSESSMENT COMPLETE PER FLOW SHEET. NO NEW FINDINGS. VSS. RT AT BEDSIDE. STRONG COUGH/DEEP BREATHE ADM. IS ENCOURAGED. WILL CONTINUE TO MONITOR.
[2016-12-05] VITALS (72 sets, daily range): BP systolic 90–133; BP diastolic 48–78
--- NOTE | 2016-12-05 00:22 | NUR ---
ABGS OBTAINED LABS REVIEWED. POTASSIUM 4.0. WILL TX. HCT 32. NO INTERVENTION AT THIS TIME. WILL CONTINUE TO MONITOR.
--- NOTE | 2016-12-05 01:40 | NUR ---
REPOSITIONED ON L SIDE. COUGH DEEP BREATH IS ENCOURAGED GOAL 1250 MET. VSS NO NEW CHANGES WILL COTNINUE TO MONITOR.
--- NOTE | 2016-12-05 03:05 | NUR ---
RADIOLOGY AT BEDSIDE.
--- NOTE | 2016-12-05 03:40 | NUR ---
REASSESSMENT COMPLETE PER FLOW SHEET. VSS. NO NEW CHANGES .WILL CONTINUE TO MONITOR.
--- NOTE | 2016-12-05 04:48 | NUR ---
REPOSITIONED ON R SIDE PER REQUEST. NO NEW FINDINGS. VSS. WILL CONTINUE TO MONITOR.
--- NOTE | 2016-12-05 05:21 | NUR ---
REPOSITIONED ON R SIDE. VSS. STRONG COUGH DEEP BREATHE ADM. IS ENCOURAGED GOAL 1250 MET.
[2016-12-05 06:03] LABS: HEMATOCRIT 32.6 % (42.0-54.0); HEMOGLOBIN 10.7 g/dL (13.5-17.5); MCH 30.7 pg (26.0-34.0); MCHC 32.8 g/dL (31.0-37.0); MCV 93.4 fL (80.0-100.0); MEAN PLATELET VOLUME 10.7 fL (7.4-10.4); RBC 3.49 10x6/uL (4.20-6.10); RDW 12.8 % (11.5-14.5)
[2016-12-05 06:34] LABS: WBC 18.3 10x3/uL (4.8-10.8)
--- NOTE | 2016-12-05 06:34 | NUR ---
L SUBCLAVIAN DRSG CHANGE ADM. NO NEW CHANGES. REFUSES BATH AND LINEN CHANGE AT THI TIME. VSS. WILL CONTINUE TO MONITOR.
[2016-12-05 06:56] LABS: ALBUMIN 3.9 g/dL (3.4-5.0); BILIRUBIN - TOTAL 0.5 mg/dL (0.2-1.3); CALCIUM 8.1 mg/dL (8.5-10.1); CARBON DIOXIDE 27.3 mmol/L (21.0-32.0); CREATININE - SERUM 1.2 mg/dL (0.6-1.3)
[2016-12-05 06:58] LABS: POTASSIUM - SERUM 4.3 mmol/L (3.5-5.1)
--- NOTE | 2016-12-05 07:30 | NUR ---
SHIFT ASSESSMENT VIA FLOWSHEET, SEE FOR DETAILS.
--- NOTE | 2016-12-05 09:04 | NUR ---
AT BEDSIDE, UPDATE PROVIDED. PT AWAKE AND CONVERSING WITH . VSS, PACED ON CM VIA TPM. MACHINE ROOM ENGINEER BUTTON WITHIN REACH AND BEING UTILIZED BY PATIENT.
--- NOTE | 2016-12-05 09:15 | NUR ---
PT STATES HE WOULD LIKE TO TAKE A NAP, BUT IS NERVOUS TO DO SO WITHOUT HIS CPAP MACHINE. HOME CPAP CONNECTED AND PLACED ON PATIENT.
--- NOTE | 2016-12-05 11:40 | NUR ---
PT MOVED TO CVICU VIA BED, MONITORS CONNECTED.
--- NOTE | 2016-12-05 12:03 | NUR ---
AT BEDSIDE, UPDATED.
--- NOTE | 2016-12-05 14:14 | NUR ---
RT AT BEDSIDE FOR BREATHING TREATMENT.
--- NOTE | 2016-12-05 15:00 | NUR ---
UPDATED BY DR LOMELI.
--- NOTE | 2016-12-05 15:15 | NUR ---
REASSESSMENT VIA FLOWSHEET, SEE FOR DETAILS. VSS, PACED ON CM. PT SLEEPING WITH CPAP MASK IN PLACE, SP02 97% ON 4L NC.
[2016-12-05 15:47] LABS: MCH 31.3 pg (26.0-34.0); MCHC 32.9 g/dL (31.0-37.0); MEAN PLATELET VOLUME 10.2 fL (7.4-10.4); RDW 13.1 % (11.5-14.5)
[2016-12-05 15:50] LABS: HEMATOCRIT 24.6 % (42.0-54.0); HEMOGLOBIN 8.1 g/dL (13.5-17.5); RBC 2.59 10x6/uL (4.20-6.10); WBC 11.7 10x3/uL (4.8-10.8)
--- NOTE | 2016-12-05 18:15 | NUR ---
AT BEDSIDE, UPDATE PROVIDED. PT AROUSES TO VOICE. VSS, PACED ON CM.
--- NOTE | 2016-12-05 19:26 | NUR ---
REPORT RECIEVED. ASSESSMENT COMPLETE PER FLOW SHEET. VSS. PT AWAKE ALERT ORIENTED X3. EYES PERRLA 3MM BRISK. O2 VIA NC 4L O2 SAT 97% RR 22 NON LABORED BILAT LUNGS CLEAR. HEART S1S2 HR 100 PACED TPM PATENT DRSG CDI DDD 100 AV INTERVAL 140 SENSITIVITY [address]MA 10. SUBSTERNAL [address] X3 PATENT SEROSANG DRAINAGE NOTED DRSG CDI NO AIR LEAK NOTED. BS ACITVE X4. ABD DISTENDED NON TENDER. BRUNSON PATENT SAMMY URINE NOTED. R LEG DRSG CDI NO REDDNESS SWELLING DRAINAGE NOTED AT SITE. FUENTES X2 NOTED SEROSANG DRAINAGE NOTED COMPRESED. BILAT ARNALDO'S SCD'S ON. R RADIAL A LINE PATENT WITH GOOD WAVEFORM EXTREMETY PINK WITH GOOD SENSATION. R SWAN LACEY PATENT DRSG CDI AT 55 CM LOCKED AN SEUCRED. L SUBCLAVIAN PATENT DRSG CDI. DENIES PAIN OR NEEDS. VSS. WILL CONTINUE TO MONITOR.
--- NOTE | 2016-12-05 21:12 | NUR ---
NO FAMILY AT THIS TIME. TPM AND CT X3 SITE DRSG CHANGE COMPLETE. NO NEW CHANGES. VSS. WILL CONTINUE TO MONITOR.
--- NOTE | 2016-12-05 23:21 | NUR ---
REASSESSMENT COMPLET EPER FLOW SHEET. VSS. NO NEW CHANGES WILL CONTINUE TO MONITOR.
[2016-12-06] VITALS (51 sets, daily range): BP systolic 88–133; BP diastolic 45–75; Ht 177.8 cm; Wt 138.7 kg
--- NOTE | 2016-12-06 01:12 | NUR ---
PT RESTING COMFORTABLY. VSS. NO NEW CHANGES WILL CONTINUE TO MONITOR.
--- NOTE | 2016-12-06 03:27 | NUR ---
REASSESSMENT COMPLET EPER FLOW SHEET. VSS. NO NEW CHANGES. RESP AT BEDSIDE. EKG OBTAINED. NO NEW FINDINGS. WILL CONTINUE TO MONITOR.
--- NOTE | 2016-12-06 03:57 | NUR ---
RADIOLOGY AT BEDSIDE.
--- NOTE | 2016-12-06 04:47 | NUR ---
COMPLETE BB LINEN CHANGE COMPLETE R LEG DRSG CHANGE ADM. NO NEW FINDINGS. VSS. WILL CNOTINUE TO MONITOR.
[2016-12-06 06:16] LABS: HEMATOCRIT 25.7 % (42.0-54.0); HEMOGLOBIN 8.2 g/dL (13.5-17.5); MCH 30.5 pg (26.0-34.0); MCHC 31.9 g/dL (31.0-37.0); MCV 95.5 fL (80.0-100.0); MEAN PLATELET VOLUME 11.1 fL (7.4-10.4); RBC 2.69 10x6/uL (4.20-6.10); RDW 13.5 % (11.5-14.5); WBC 14.3 10x3/uL (4.8-10.8)
[2016-12-06 06:42] LABS: ALBUMIN 4.5 g/dL (3.4-5.0); ANION GAP 13.4 mmol/L (8-16); BILIRUBIN - TOTAL 0.52 mg/dL (0.2-1.3); CALCIUM 8.3 mg/dL (8.5-10.1); CARBON DIOXIDE 27.8 mmol/L (21.0-32.0); CREATININE - SERUM 1.3 mg/dL (0.6-1.3); POTASSIUM - SERUM 4.2 mmol/L (3.5-5.1); PROTEIN - SERUM 6.6 g/dL (6.4-8.2)
--- NOTE | 2016-12-06 07:30 | NUR ---
SHIFT ASSESSMENT VIA FLOWSHEET, SEE FOR DETAILS. VSS. PACED ON CM VIA TPM.
--- NOTE | 2016-12-06 08:41 | TEE ---
PATIENT:KENDALL TERRELL MEDICAL RECORD: [id number] LOCATION:[place] [address] AGE OF PATIENT: 66 ADMISSION DATE: 12/04/16 SEX: M REFERRING PHYSICIAN: INTERPRETING PHYSICIAN: KENDALL HEATH MD TRANSESOPHAGEAL ECHOCARDIOGRAM RADHA CHARGE Y INDICATIONS: CABG PREMEDICATIONS: PATIENT'S RESPONSE PROCEDURE DOPPLER MEASUREMENTS: LVIT LA PA RA LVOT RVOT Asc. Ao AV Gradient Peak AV Mean AV Area MV Gradient Peak MV Mean MV Area INTERPRETATION: Doppler: 2-D: EF 55 +% COLOR FLOW DOPPLER MILD MR, TRACE TR,WHIF PI NORMAL SALINE STUDY: MISCELLANOUS: DIAGNOSIS: PLAN: [employer] Field Coordinator:Jazmine Cabrera Domestic Housekeeper: Jazmine BRIAN COMMENTS: ARMANI PATIENT DATE OF SERVICE: 12/04/2016 Transesophageal echo evaluation of valvular structures during bypass surgery. FINDINGS: 1. Left ventricular chamber size is within normal limits. Left ventricular systolic function is normal. Overall ejection fraction estimated at 60%. 2. Left atrium, right atrium, and right ventricle chamber sizes are within normal limits. TRANSESOPHAGEAL ECHOCARDIOGRAM REPORT [id number] MAIA TERRELL 3. Valvular structures have normal structure and motion. 4. Doppler interrogation reveals mild mitral regurgitation. No other valvular insufficiency or stenosis. 5. No evidence of pericardial effusion or left ventricular thrombus. TRANSINT:[id number] Voice Confirmation ID: [id number] DOCUMENT ID: [id number] at 0841 CC: [id number] DICTATION DATE: 12/04/16 1430 ACCOUNTANT AUDITOR: 12/05/16 0244 [place] [address]
--- NOTE | 2016-12-06 08:50 | NUR ---
CHEST TUBES D/C'D BY DR LOMELI.
--- NOTE | 2016-12-06 09:00 | NUR ---
RT IJ SWAN D/C'D PER ORDER WITH CATH TIP INTACT. RT RADIAL A LINE D/C'D PER ORDER WITH CATH TIP INTACT.
--- NOTE | 2016-12-06 11:15 | NUR ---
PT TRANSFERED TO CHAIR AT BEDSIDE WITH PHYSICAL THERAPY ASSIST.
--- NOTE | 2016-12-06 11:27 | NUR ---
SPOKE WITH LACHELLE CORONA RN REGARDING PT RATE CONVERSION TO A FIB, NEW ORDERS RECEIVED.
--- NOTE | 2016-12-06 12:20 | NUR ---
DR TEIXEIRA HERE TO SEE PATIENT.
--- NOTE | 2016-12-06 12:50 | NUR ---
PT BACK TO BED WITH PHYSICAL THERAPY ASSIST. PT WEAK, TOLERATES TRANSFER WITH NOTED HYPOTENSION.
--- NOTE | 2016-12-06 13:00 | NUR ---
REASSESSMENT VIA FLOWSHEET, SEE FOR DETAILS.
--- NOTE | 2016-12-06 13:54 | NUR ---
PT RESTING WITH EYES CLOSED, AROUSES TO VOICE AND LIGHT TOUCH. PERFORMS I/S AT 750-1000 WITH ENCOURAGEMENT. WEAK, NONPRODUCTIVE COUGH. EDUCATED PATIENT ABOUT THE BENEFITS OF COUGHING AND DEEP BREATHING DURING THE POST OP/RECOVERY PERIOD. PT VERBALIZES UNDERSTANDING. VSS. REQUESTED CPAP TO WEAR DURING NAP.
--- NOTE | 2016-12-06 14:38 | NUR ---
RT AT BEDSIDE FOR BREATHING TREATMENT.
--- NOTE | 2016-12-06 15:15 | NUR ---
AT BEDSIDE, PT AWAKE AND COMMUNICATING. VSS.
--- NOTE | 2016-12-06 15:30 | NUR ---
REASSESSMENT VIA FLOWSHEET, SEE FOR DETAILS.
--- NOTE | 2016-12-06 16:59 | OP ---
PATIENT NAME: KENDALL TERRELL MEDICAL RECORD: [id number] :52 LOCATION:[facility] [facility] ADMISSION DATE:12/04/16 SURGEON: KENNEY MCLAUGHLIN MD DATE OF OPERATION: 12/04/2016 SURGEON: Kenney Mclaughlin MD ANESTHESIA: General endotracheal, Dr. Valentin. OPERATIONS PERFORMED: Aortocoronary artery bypass utilizing the left internal thoracic to the left anterior descending, reverse saphenous vein graft to the first diagonal and reverse saphenous vein graft sequential first obtuse marginal, sequential posterior descending coronary artery. PREOPERATIVE DIAGNOSES: Angina pectoris and severe occlusive coronary artery disease. POSTOPERATIVE DIAGNOSES: Angina pectoris and severe occlusive coronary artery disease. INDICATION FOR OPERATION: Angina pectoris. FINDINGS AT OPERATION: The greater saphenous vein from the right leg was an excellent conduit as was the left internal thoracic artery. The target vessels were all of good caliber and not diffusely diseased. The first obtuse marginal was 1.5 mm. ESTIMATED BLOOD LOSS: Cell Saver was used. DESCRIPTION OF PROCEDURE: After informed consent, adequate preoperative medication evaluation, the patient was brought to the operating room and placed on the table in the supine position. After induction of general endotracheal anesthesia and application of appropriate monitoring devices, the chest, neck, abdomen, and both legs were prepped and draped in a sterile field, utilizing Betadine scrub, alcohol, and Betadine solution. A Betadine-impregnated drape was also used. Saphenous vein was harvested from right thigh through a small transverse incision. The leg was closed over drains utilizing 3-0 Vicryl and skin yamila. A median sternotomy incision was used and dissection carried down the fascia. Hemostasis maintained with electrocautery. The sternum was divided. Innominate vein was identified and protected. Left internal thoracic was taken down and prepared for grafting. The patient was given a calculated dose of heparin, cannulated in standard fashion utilizing 1 aortic, one two-stage cannula in the atrium and inferior vena cava. The patient was placed on cardiopulmonary bypass, cooled to 32 degrees centigrade. The patient was given cardioplegic solution through the aortic root. The patient was given cold intermittent cardioplegic solution throughout the procedure through the root, through the grafts or a combination of both. The first vessel to be grafted was the posterior descending. It was grafted end-to-side utilizing a running 7-0 Prolene suture. The graft was then measured to the first obtuse marginal and a [id number] anastomosis fashioned utilizing a running 8-0 Prolene suture. The graft was then taken to the aorta and a proximal anastomosis fashioned utilizing running 6-0 Prolene suture. Next, the first diagonal was grafted end-to-side utilizing a running 7-0 Prolene suture. Grafts were measured back to the aorta and a proximal anastomosis fashioned utilizing running 6-0 Prolene suture. Next, left internal thoracic was brought through the hole in pericardium, OPERATIVE REPORT [id number] KENDALL TERRELL A sutured left anterior descending end-to-side utilizing a running 8-0 Prolene suture. All maneuvers to remove trapped air were performed. The patient was given warm cardioplegic reperfusion and controlled reperfusion. The patient rewarmed to 37 degrees centigrade. Two atrial and 2 ventricular pacing wires were placed on the heart and brought out through the epigastric area. The patient was weaned cardiopulmonary bypass. After being stable off bypass, he was given calculated dose of protamine to reverse the heparin. Hemostasis was achieved. A #40 right angle and #36 chest tubes were brought in through the epigastric area and placed in mediastinum. A separate left pleural tube was connected to underwater seal and suction. Chest was again irrigated. Instrument count and sponge count were correct times 2. Chest was closed in layers utilizing #7 wire on the sternum, #2 Vicryl in linea alba and pectoralis fascia. Subcutaneous tissue was approximated with 3-0 Vicryl and skin approximated with 3-0 subcuticular Vicryl. Sterile dressings were applied. The patient tolerated the procedure well and was transferred to the ICU in satisfactory condition. TRANSINT:[id number] Voice Confirmation ID: [id number] DOCUMENT ID: [id number] KENNEY MCLAUGHLIN MD at 1659 CC: [id number] DICTATION DATE: 12/04/16 153 RAMP SUPERVISOR: 12/04/162101 ADM IN [facility] [address] [place] [id number]
--- NOTE | 2016-12-06 17:30 | NUR ---
PT REPOSITIONED FOR COMFORT. VSS.
--- NOTE | 2016-12-06 19:15 | NUR ---
REPORT RECVD. CARE ASSUMED. INITIAL ASSMNT COMPLETED. SEE FLOWSHEET FOR ALL FINDINGS. AWAKE AND AOX4. RESTING ON HOME CPAP UNIT. LING SOUNDS DIM IN BASES. SPO2 96%. SR ON THE MONITOR. PULSES PALP. TEMP PM VVI 60. SENSING ONLY. CORDARONE GTT INFUSING AT 0.5MG. AFEBRILE. TEDS/SCDS ON. DENIES PAIN AT THIS TIME. INCENTIVE AND COUGH/DB ENCOURAGED WITH POOR EFFORT. WEAK ENERGY EFFICIENCY ENGINEER COUGH SEEN. REPOSITIONED IN BED FOR COMFORT. HOB UP. C/L IN REACH. CONT CURRENT POC.
--- NOTE | 2016-12-06 21:15 | NUR ---
HS MEDS GIVEN. TURNED AND REPOSITIONED. WEAK JUNIOR ELECTRICAL ENGINEER COUGH NOTED. S[P2 96% ON O2 AT 4 LPM NC. SR ON THE MONITOR. NO VISITORS. PRN NORCO GIVEN TO PROMOTE COMFORT AND FOR INC PAIN LEVEL. HOB UP. C/L IN REACH. CONT CURRENT POC.
--- NOTE | 2016-12-06 23:15 | NUR ---
REASSESSMENT COMPLETED. SEE FLOWSHEET FOR ALL FINDINGS. RESTING ON HOME CPAP UNIT. LUNG SOUNDS DIM IN BASES SPO2 96%. SR ON THE MONITOR. PULSES PALP. TEMP PM VVI 60. SENSING ONLY. CORDARONE GTT INFUSING AT 0.5MG. AFEBRILE. TEDS/SCDS ON. DENIES PAIN AT THIS TIME. INCENTIVE AND COUGH/DB ENCOURAGED WITH POOR EFFORT. WEAK E COMMERCE MARKETING MANAGER COUGH SEEN. ABD SOFT, BSA X4. BLADDER NON PALP, DENIES URGE TO VOID. REPOSITIONED IN BED FOR COMFORT. HOB UP. C/L IN REACH. CONT CURRENT POC.
[2016-12-07] VITALS (24 sets, daily range): BP systolic 101–152; BP diastolic 48–90
--- NOTE | 2016-12-07 01:11 | NUR ---
RESTING WITH EYES CLOSED. NO NEEDS VOICED. VSS. SR ON THE MONITOR. HOB UP. C/L IN REACH. CONT CURRENT POC.
--- NOTE | 2016-12-07 03:11 | NUR ---
REASSESSMENT COMPLETED. SEE FLOWSHEET FOR ALL FINDINGS. RESTING ON HOME CPAP UNIT. LUNG SOUNDS DIM IN BASES SPO2 96%. SR ON THE MONITOR. PULSES PALP. TEMP PM VVI 60. SENSING ONLY. CORDARONE GTT INFUSING AT 0.5MG. AFEBRILE. TEDS/SCDS ON. DENIES PAIN AT THIS TIME. INCENTIVE AND COUGH/DB ENCOURAGED WITH POOR EFFORT. WEAK SENIOR ENGINEERING SPECIALIST COUGH SEEN ABD SOFT, BSA X4. BLADDER NON PALP, ASSISTED TO VOID IN URINAL. REPOSITIONED IN BED FOR COMFORT. HOB UP. C/L IN REACH. CONT CURRENT POC.
--- NOTE | 2016-12-07 05:00 | NUR ---
RETURNED FROM RADIOLOGY VIA W/C WITH NO DIFF. ASSISTED TO CHAIR AT BEDSIDE. PLACED ON ICU MONITORS. SR SEEN. DPO2 92%. INCENTIVE AND COUGH/DB. C/L [LACED IN REACH. CONT CURRENT POC.
[2016-12-07 06:17] LABS: HEMATOCRIT 25.4 % (42.0-54.0); HEMOGLOBIN 8.3 g/dL (13.5-17.5); MCH 31.3 pg (26.0-34.0); MCHC 32.7 g/dL (31.0-37.0); MCV 95.8 fL (80.0-100.0); MEAN PLATELET VOLUME 11.2 fL (7.4-10.4); RBC 2.65 10x6/uL (4.20-6.10); RDW 13.2 % (11.5-14.5); WBC 23.2 10x3/uL (4.8-10.8)
[2016-12-07 06:24] LABS: ANION GAP 12.9 mmol/L (8-16); BILIRUBIN - TOTAL 0.79 mg/dL (0.2-1.3); CALCIUM 8.4 mg/dL (8.5-10.1); CARBON DIOXIDE 27.4 mmol/L (21.0-32.0); CREATININE - SERUM 1.6 mg/dL (0.6-1.3); POTASSIUM - SERUM 4.3 mmol/L (3.5-5.1); PROTEIN - SERUM 6.7 g/dL (6.4-8.2)
--- NOTE | 2016-12-07 10:00 | NUR ---
REMAINS UP TO CHAIR. DENIES CURRENT NEEDS AFTER REPOSITIONED IN CHAIR. ENCOURAGED TO DEEP BREATHE AND COUGH.
--- NOTE | 2016-12-07 10:56 | NUR ---
Is the patient Alert and Oriented? Yes 0 * How many steps to enter\exit or inside your home? 3 0 * PCP DR DUARTE IN [facility]. 0 * Pharmacy [facility] IN [place] 0 * Preadmission Environment Home with Family 0 * ADLs Independent 0 * Equipment CPAP 0 * Other Equipment CPAP AT HOME PROVIDED BY [facility] 0 * List name and contact numbers for known caregivers / representatives who currently or will assist patient after discharge: SPOUSE: BERRY [phone] 0 * Community resources currently utilized None 0 * Additional services required to return to the preadmission environment? No 0 * Can the patient safely return to the preadmission environment? Yes 0 * Has this patient been hospitalized within the prior 30 days at any hospital? No PATIENT IS AWAKE AND ALERT. HE STATES HE WAS INDEPENDENT IN ALL ADL'S PRIOR TO COMING INTO THE HOSPITAL. PATIENT LIVES AT HOME WITH HIS ., BERRY. SHE WILL BE AVAILABLE TO DRIVE HIM HOME AT DISCHARGE. PATIENT'S PCP IS DR. DUARTE IN [place], [place]. PATIENT GETS HIS MEDS FROM [facility] IN [place]. PATIENT HAS A CPAP MACHINE THAT IS PROVIDED BY [facility]. PATIENT DENIES [facility] HAV[facility] HOME HEALTH. THERE ARE 3 STEPS TO ENTER HIS HOME. PATIENT PLANS TO RETURN HOME WITH HIS AT DISCHARGE.
--- NOTE | 2016-12-07 17:45 | NUR ---
NOTIFIED DR. LOMELI OF INCREASED BLADDER RESIDUAL OF 850 ML. WILL ATTEMPT TO LET PT URINATE AGAIN BEFORE IN AND OUT CATH.
--- NOTE | 2016-12-07 19:20 | NUR ---
REPORT RECVD. CARE ASSUMED. INITIAL ASSMNT COMPLETED. SEE FLOWSHEET FOR ALL FINDINGS. AWAKE AND AOX4. RESTING ON HOME CPAP UNIT. UP IN CHAIR AT BEDSIDE. LUNG SOUNDS DIM IN BASES. SPO2 96%. SR ON THE MONITOR. PULSES PALP. TEMP PM VVI 60. SENSING ONLY. CORDARONE GTT INFUSING AT 0.5MG. AFEBRILE. TEDS/SCDS ON. DENIES PAIN AT THIS TIME. INCENTIVE AND COUGH/DB ENCOURAGED WITH POOR EFFORT. OCC PROD COUGH SEEN. REPOSITIONED IN BED FOR COMFORT. HOB UP. C/L IN REACH. CONT CURRENT POC.
--- NOTE | 2016-12-07 23:20 | NUR ---
REASSESSMENT COMPLETED. SEE FLOWSHEET FOR ALL FINDINGS. RESTING ON HOME CPAP UNIT. LUNG SOUNDS DIM IN BASES SPO2 96%. SR ON THE MONITOR. PULSES PALP. TEMP PM VVI 60. SENSING ONLY. AFEBRILE. TEDS/SCDS ON. DENIES PAIN AT THIS TIME. INCENTIVE AND COUGH/DB ENCOURAGED WITH POOR EFFORT. OCC COUGH SEEN ABD SOFT, BSA X4. BLADDER NON PALP, VOIDING TO URINAL. REPOSITIONED IN BED FOR COMFORT. HOB UP. C/L IN REACH. CONT CURRENT POC.
[2016-12-08] VITALS (23 sets, daily range): BP systolic 107–144; BP diastolic 41–87
--- NOTE | 2016-12-08 01:15 | NUR ---
RESTING WITH NO DISTRESS ON HOME CPAP. SR ON THE MONITOR. C/L IN REACH. CONT CURRENT POC.
--- NOTE | 2016-12-08 04:00 | NUR ---
BATH GIVEN. LINENS AND DRESSINGS CHANGED.
--- NOTE | 2016-12-08 05:04 | NUR ---
UP TO W/C FOR CHEST XRAY. RETURNED NO DISTRESS. ASSISTED TO CHAIR AT BEDSIDE. VSS. C/L IN REACH. CONT POC.
[2016-12-08 07:05] LABS: HEMATOCRIT 24.9 % (42.0-54.0); HEMOGLOBIN 7.9 g/dL (13.5-17.5); MCH 30.3 pg (26.0-34.0); MCHC 31.7 g/dL (31.0-37.0); MCV 95.4 fL (80.0-100.0); MEAN PLATELET VOLUME 11.5 fL (7.4-10.4); RBC 2.61 10x6/uL (4.20-6.10); RDW 13.1 % (11.5-14.5); WBC 22.6 10x3/uL (4.8-10.8)
[2016-12-08 07:09] LABS: ALBUMIN 3.7 g/dL (3.4-5.0); BILIRUBIN - TOTAL 0.61 mg/dL (0.2-1.3); CALCIUM 8.4 mg/dL (8.5-10.1); CARBON DIOXIDE 27.7 mmol/L (21.0-32.0); CREATININE - SERUM 1.4 mg/dL (0.6-1.3); POTASSIUM - SERUM 3.7 mmol/L (3.5-5.1)
--- NOTE | 2016-12-08 07:47 | NUR ---
K+ LEVEL TREATED PER ORDERS
--- NOTE | 2016-12-08 09:20 | NUR ---
FAMILY AT BEDSIDE. UPDATE GIVEN. NO CURRENT NEEDS.
--- NOTE | 2016-12-08 12:13 | NUR ---
FAMILY AT BEDSIDE. PT EATING LUNCH.
--- NOTE | 2016-12-08 18:21 | NUR ---
DRESSINGS CHANGED. BED LINENS CHANGED. FAMILY AT BEDSIDE. UPDATE GIVEN. NO FURTHER QUESTIONS.
--- NOTE | 2016-12-08 19:20 | NUR ---
REPORT RECVD. CARE ASSUMED. INITIAL ASSMNT COMPLETED. SEE FLOWSHEET FOR ALL FINDINGS. AWAKE AND AOX4. RESTING IN BED ON O2 AT 4 LPM LUNG SOUNDS DIM IN BASES. SPO2 96% SR ON THE MONITOR. PULSES PALP. TEMP PM VVI 60. SENSING ONLY. AFEBRILE. TEDS/SCDS ON. DENIES PAIN. VOIDING TO URINAL. INCENTIVE AND COUGH/DB ENCOURAGED WITH GOOD EFFORT. OCC PROD COUGH SEEN. REPOSITIONED IN BED FOR COMFORT. HOB UP. C/L IN REACH. CONT CURRENT POC.
--- NOTE | 2016-12-08 21:30 | NUR ---
HS MEDS GIVEN. PRN NORCO PROVIDED FOR PAIN CONTROL. VSS. SR ON THE MONITOR. POSITIONED IN BED FOR COMFORT. HOB UP. C/L IN REACH. CONT CURRENT POC.
--- NOTE | 2016-12-08 23:20 | NUR ---
REASSESSMENT COMPLETED. SEE FLOWSHEET FOR ALL FINDINGS. AWAKE AND AOX4. RESTING IN BED ON O2 AT 4 LPM LUNG SOUNDS DIM IN BASES. SPO2 96% SR ON THE MONITOR. PULSES PALP. TEMP PM VVI 60. SENSING ONLY. AFEBRILE. TEDS/SCDS ON. DENIES PAIN. VOIDING TO URINAL. INCENTIVE AND COUGH/DB ENCOURAGED WITH GOOD EFFORT. OCC PROD COUGH SEEN. REPOSITIONED IN BED FOR COMFORT. HOB UP. C/L IN REACH. CONT CURRENT POC.
[2016-12-09] VITALS (24 sets, daily range): BP systolic 90–135; BP diastolic 57–76
--- NOTE | 2016-12-09 01:09 | NUR ---
VOIDING TO URINAL AT BEDSIDE. MINIMAL ASSIST BACK INTO BED. POSITIONED FOR COMFORT. VSS. HOB UP. C/L IN REACH. CONT CURRENT POC.
--- NOTE | 2016-12-09 05:00 | NUR ---
RETURNED FROM XRAY VIA W/C AND ASSISTED TO CHAIR AT BEDSIDE. SR ON THE MONITOR. TEMP PM INTACT. VSS. DENIES FURTHER NEEDS. C/L IN REACH. CONT CURRENT POC.
[2016-12-09 06:40] LABS: ALBUMIN 3.5 g/dL (3.4-5.0); ANION GAP 12.6 mmol/L (8-16); BILIRUBIN - TOTAL 0.6 mg/dL (0.2-1.3); CALCIUM 8.4 mg/dL (8.5-10.1); CARBON DIOXIDE 28.3 mmol/L (21.0-32.0); CREATININE - SERUM 1.3 mg/dL (0.6-1.3); POTASSIUM - SERUM 3.9 mmol/L (3.5-5.1); PROTEIN - SERUM 6.6 g/dL (6.4-8.2)
--- NOTE | 2016-12-09 06:45 | NUR ---
K+ LEVEL TREATED PER ORDERS
[2016-12-09 06:52] LABS: HEMATOCRIT 24.3 % (42.0-54.0); HEMOGLOBIN 7.9 g/dL (13.5-17.5); MCH 31.1 pg (26.0-34.0); MCHC 32.5 g/dL (31.0-37.0); MCV 95.7 fL (80.0-100.0); MEAN PLATELET VOLUME 10.7 fL (7.4-10.4); RBC 2.54 10x6/uL (4.20-6.10); RDW 13.1 % (11.5-14.5)
--- NOTE | 2016-12-09 19:30 | NUR ---
REPORT RECVD. CARE ASSUMED. INITIAL ASSMNT COMPLETED. SEE FLOWSHEET FOR ALL FINDINGS. AWAKE AND AOX4. RESTING IN CHAIR ON O2 AT 2 LPM NC. LUNG SOUNDS DIM IN BASES. SPO2 96% SR ON THE MONITOR. PULSES PALP. TEMP PM VVI 60 INTACT. AFEBRILE. TEDS/SCDS ON. DENIES PAIN. VOIDING TO URINAL. INCENTIVE AND COUGH/DB ENCOURAGED WITH GOOD EFFORT. OCC PROD COUGH SEEN. DENIES NEEDS. C/L IN REACH. CONT CURRENT POC.
--- NOTE | 2016-12-09 21:10 | NUR ---
HS MEDS GIVEN. PRN NORCO PROVIDED FOR PAIN CONTROL. PO FLUIDS AND HS SNACK PROVIDED. DENIES FURTHER NEEDS. C/L IN REACH. CONT CURRENT POC .
--- NOTE | 2016-12-09 22:00 | NUR ---
MINIMAL ASSIST TO BED. POSITIONED FOR COMFORT. VSS. DENIES NEEDS. HOB UP. C/L PLACED IN REACH. CONT CURRENT POC.
--- NOTE | 2016-12-09 23:30 | NUR ---
REASSESSMENT COMPLETED. SEE FLOWSHEET FOR ALL FINDINGS. AWAKE AND AOX4. RESTING IN BED ON O2 AT 2 LPM LUNG SOUNDS DIM IN BASES. SPO2 96% SR ON THE MONITOR. PULSES PALP. TEMP PM VVI 60. SENSING ONLY. AFEBRILE. TEDS/SCDS ON. DENIES PAIN. VOIDING TO URINAL. INCENTIVE AND COUGH/DB ENCOURAGED WITH GOOD EFFORT. OCC PROD COUGH SEEN. REPOSITIONED IN BED FOR COMFORT. HOB UP. C/L IN REACH. CONT CURRENT POC.
[2016-12-10] VITALS (24 sets, daily range): BP systolic 96–156; BP diastolic 45–86
--- NOTE | 2016-12-10 01:07 | NUR ---
RESTING IN BED ON HOME CPAP UNIT. NO DISTRESS. VSS. HOB UP. C/L IN REACH. CONT POC.
--- NOTE | 2016-12-10 05:20 | NUR ---
RETURNED FROM XRAY VIA W/C. MINIMAL ASSIST TO CHAIR AT BEDSIDE. VSS. SR ON THE MONITOR. TEMP PM INTACT. PRN PAIN MED EFFECTIVE WITH PAIN CONTROL. PRN MIRALAX REQUESTED FOR CONTINUED CONSTIPATION. C/L PLACED IN REACH. CONT CURRENT POC.
[2016-12-10 06:42] LABS: HEMATOCRIT 25.3 % (42.0-54.0); HEMOGLOBIN 8.1 g/dL (13.5-17.5); MCH 30.8 pg (26.0-34.0); MCV 96.2 fL (80.0-100.0); MEAN PLATELET VOLUME 10.6 fL (7.4-10.4); RBC 2.63 10x6/uL (4.20-6.10); RDW 13.5 % (11.5-14.5); WBC 22.4 10x3/uL (4.8-10.8)
[2016-12-10 06:58] LABS: ALBUMIN 3.5 g/dL (3.4-5.0); BILIRUBIN - TOTAL 0.6 mg/dL (0.2-1.3); CALCIUM 8.4 mg/dL (8.5-10.1); CARBON DIOXIDE 27.9 mmol/L (21.0-32.0); CREATININE - SERUM 1.4 mg/dL (0.6-1.3); POTASSIUM - SERUM 3.9 mmol/L (3.5-5.1); PROTEIN - SERUM 6.6 g/dL (6.4-8.2)
--- NOTE | 2016-12-10 07:00 | NUR ---
received report and assumed care of patient. Patient currently awake, alert and oriented up in chair. Patient currently denies pain. Midsternal incision CDI, TPM wires x 2 noted. TPM VVI rate of 60, VMA 10. Patient sinus rhythm on CM rate of 60s. Left subclavian CVL with dressing CDI, swab caps in place. Sensing only on TPM. Room air with o2 sat in the 90s, patient does not appear SOB. voids via urinal without assistance. Right leg harvest site dressing noted to have drainage. Teds and SCDs in place. See shift assessment flowsheet for all findings.
--- NOTE | 2016-12-10 09:00 | NUR ---
Darion with Pt in room to ambulate patient. Right harvest site dressing changed beforehand. Patient set up with breakfast tray once returned from walk with PT. at bedside.
--- NOTE | 2016-12-10 09:15 | NUR ---
in to see patient. no new orders received.
--- NOTE | 2016-12-10 10:30 | NUR ---
Patient denies needs at this time. Remains up in chair.
--- NOTE | 2016-12-10 10:57 | NUR ---
NUTRITION MONITORING & EVAL CHART REVIEWED. NURSING REPORTS PT WITH GOOD PO INTAKE AHA DIET. WILL CONTINUE TO PROVIDE DIET, MONITOR PT PROGRESS. RD FOLLOWING
--- NOTE | 2016-12-10 11:30 | NUR ---
Patient set up with lunch tray. Denies needs.
--- NOTE | 2016-12-10 13:25 | NUR ---
Patients right leg dressing changed again due to saturation. Patient ambulated with PT. Desated to 80 while ambulating with [place]. Pt given break and then continued back to room. O2 saturation increased as O2 was increased from 3L to 6L. Patient back in chair, o2 removed, pt 94 % at this time. Will continue to monitor.
--- NOTE | 2016-12-10 15:00 | NUR ---
Patients back for 1500 visitation. patient denies needs.
--- NOTE | 2016-12-10 16:30 | NUR ---
Patient set up with dinner tray.
--- NOTE | 2016-12-10 18:46 | NUR ---
Patients in room, update given. Pt requested pain medication, given per order.
--- NOTE | 2016-12-10 19:45 | NUR ---
REC'D TO CARE, PT UP IN CHAIR. VSS. CM - SR, NO SIGN OF DISTRESS. PT ALERT AND ORIENTED. DENIES NEEDS. USES URINAL INDEPENDENTLY. SKIN ASSESSMENT PER FLOWSHEET. ALARMS ON AND C/L IN REACH.
--- NOTE | 2016-12-10 20:11 | NUR ---
PT BACK IN BED INDENDENTLY. DSG CHANGES TO SUBSTERNAL AND LEG INCISIONS BY Silver AREVALO RN. PT COOPERATIVE, REPORTS ADEQUATE PAIN RELIEF. ALARMS ON AND C/L IN REACH.
--- NOTE | 2016-12-10 21:20 | NUR ---
NO VISITORS. ADMIN PO MEDS PER MD ORDER. OWN HOME BIPAP IN USE, DENIES OTHER NEEDS. C/L IN REACH.
--- NOTE | 2016-12-10 22:35 | NUR ---
RT AT BS FOR RESP TX, IPPB AND I.S.
--- NOTE | 2016-12-10 23:32 | NUR ---
REASSESSMENT PER FLOWSHEET, NO ACUTE CHANGES. CM - SR WITH OCC PACED BEATS. PT WITH HOB 40, HOME BIPAP ON. ALARMS ON AND C/L IN REACH.
[2016-12-11] VITALS (24 sets, daily range): BP systolic 95–148; BP diastolic 49–79
--- NOTE | 2016-12-11 03:17 | NUR ---
REASSESSMENT PER FLOWSHEET, NO ACUTE CHANGES. RT AT BS FOR RESP TX.
--- NOTE | 2016-12-11 03:31 | NUR ---
PT ON C/L - "NEED A PILL PILL AFTER RESP TX AND COUGHING". ADMIN PRN NORCO. FRESH WATER AT BS. C/L IN REACH.
--- NOTE | 2016-12-11 04:45 | NUR ---
TO RADIOLOGY VIA W/C. BACK TO ROOM. UP IN CHAIR. PT BRUSHED HIS TEETH, HAIR WASHED AND COMBED. C/L IN REACH.
[2016-12-11 06:10] LABS: HEMATOCRIT 26.7 % (42.0-54.0); HEMOGLOBIN 8.5 g/dL (13.5-17.5); MCH 30.9 pg (26.0-34.0); MCHC 31.8 g/dL (31.0-37.0); MCV 97.1 fL (80.0-100.0); MEAN PLATELET VOLUME 10.2 fL (7.4-10.4); RBC 2.75 10x6/uL (4.20-6.10); RDW 13.9 % (11.5-14.5); WBC 18.8 10x3/uL (4.8-10.8)
[2016-12-11 06:41] LABS: ANION GAP 14.3 mmol/L (8-16); CALCIUM 8.4 mg/dL (8.5-10.1); CARBON DIOXIDE 28.5 mmol/L (21.0-32.0); CREATININE - SERUM 1.4 mg/dL (0.6-1.3); POTASSIUM - SERUM 3.8 mmol/L (3.5-5.1)
--- NOTE | 2016-12-11 06:50 | NUR ---
UP TO BR. NO BM, PASSED GAS. REQUESTS [facility] THIS AM.
--- NOTE | 2016-12-11 07:00 | NUR ---
PT REPORT REC'D, PT CARE ASSUMED. PT AAOX4, SITTING UP IN CHAIR. NO C/O PAIN, VSS, ROOM AIR. TPM WIRES SECURED TO CHEST, VVI 60, PACING. MIDSTERNAL INCISION, DRESSING CDI, SUBSTERNAL DRESSING CDI, RIGHT LEG HARVEST SITES, DRESSING INTACT, DRAINAGE FROM RIGHT UPPER THIGH OLD FUENTES DRAIN SITE. LEFT SUBCLAVIAN CVL, S/L, DRESSING CDI. SHIFT ASSESSMENT COMPELTED, SEE FLOW SHEET, ROOM FREE OF CLUTTER, BED LOCKED IN LOWEST POSITION, CALL LIGHT IN REACH. WILL CONTINUE TO MONITOR PT.
--- NOTE | 2016-12-11 08:50 | NUR ---
PHYSICAL THERAPY IN WITH PT, PT AMBULATED APPROX 480 FEET, PT TOLERATED WELL, O2 SATS BETWEEN 93-94%. WILL CONTINUE TO MONITOR PT.
--- NOTE | 2016-12-11 09:00 | NUR ---
PT FAMILY AT THE BEDSIDE, ALL QUESTIONS ANSWERED, VSS. CHANGED LEG DRESSINGS, PTS ASKED "MAY I WATCH, SO I'LL KNOW WHAT TO DO WHEN WE GET HOME." CHANGED DRESSING, PT TOLERATED WELL. WILL CONTINUE TO MONITOR PT.
--- NOTE | 2016-12-11 09:52 | NUR ---
Rehab Note- Rehab Prescreen Order received. The patient has [facility] Advantage O insurance and cannot be admitted to [facility] Acute Rehab. Thank you for this referral! Rashida Beltrán RN Clinical Liaison, [facility] Rehab/[facility]
--- NOTE | 2016-12-11 10:26 | NUR ---
PT C/O PAIN RATED 8/10 AT INCISIONAL SITE AND RIGHT SHOULDER, PAIN MED GIVEN, WILL CONTINUE TO SHERWIN CALDERON.
--- NOTE | 2016-12-11 11:00 | NUR ---
PT SITTING UP IN CHAIR, NO C/O PAIN, VSS. REASSESSMENT COMPLETED, SEE FLOW SHEET. ROOM FREE OF CLUTTER, CALL LIGHT IN REACH, WILL CONTINUE TO MONITOR PT.
--- NOTE | 2016-12-11 11:34 | NUR ---
AT THE BEDSIDE, CHANGED TPM TO VVI30, WILL CONTINUE TO MONITOR PT.
--- NOTE | 2016-12-11 13:20 | NUR ---
PHYSICAL THERAPY IN WITH PT, PT AMBULATED APPROX 500FT, PT TOLERATED WELL O2 SAT REMAINED 93-95%, WILL CONTINUE TO MONITOR PT.
--- NOTE | 2016-12-11 13:41 | NUR ---
TIERNEY WITH CASE MANAGEMENT IN WITH PTRadha
--- NOTE | 2016-12-11 14:06 | NUR ---
Patient Name: KENDALL TERRELL Encounter No: [id number] : 1950 Primary Insurance: [place] [facility] HMO Anticipated DC Date: 12-12-2016 Planned Disposition: Home External Planned Provider: DR LOMELI DCP follow-up note: CM MET WITH PATIENT AND HIS TO RE-ASSESS DC PLAN/NEEDS. THEY BOTH STATED THAT THEY PLAN TO DC HOME, BUT WOULD LIKE TO HAVE HOME HEALTH SERVICES IF THEY ARE AVAILABLE. THEY HAVE NEVER USED HH SERVICES IN THE PAST AND INQUIRED ABOUT WHICH HH AGENCY IS IN NETWORK WITH PT'S INSURANCE CO. CM PLACED CALL TO [facility] CONTACT THAT CM HAS FOR THIS PATIENT'S ADMISSION TO DETERMINE IN-NETWORK HH PROVIDERS. CM HAD TO LEAVE AND WILL AWAIT RETURN CALL SO THAT LIST OF IN-NETWORK HH PROVIDERS CAN BE GIVEN TO PT AND HIS SPOUSE TO MAKE CHOICE OF HH PROVIDER. ONCE CM HAS RECEIVED HH INFORMATION WILL NOTIFY PATIENT AND ARRANGE HH FOR DISCHARGE. NO FURTHER NEEDS VOICED AT THIS TIME. STATED SHE WILL DRIVE [place]IENT HOME [place]. Lennie Taylor RN, CM
--- NOTE | 2016-12-11 15:00 | NUR ---
PT SITTING UP IN CHAIR, NO C/O PAIN, VSS. REASSESSMENT COMPLETED, SEE FLOW SHEET. FAMILY AT THE BEDSIDE, ALL QUESTIONS ANSWERED. ROOM FREE OF CLUTTER, CALL LIGHT IN REACH, WILL CONTINUE TO MONITOR PT.
--- NOTE | 2016-12-11 19:14 | NUR ---
ADMIN PRN NORCO PER PT C/O L SHOULDER PAIN. PT UP TO BR. GAIT STEADY.
--- NOTE | 2016-12-11 19:43 | NUR ---
PT HAD BM. COMPLETE BATH AND APRYL-CARE DONE. GOWN AND LINENS CHANGED. PT BACK UP IN CHAIR. ALARMS ON AND C/L IN REACH.
--- NOTE | 2016-12-11 21:12 | NUR ---
PT BACK TO BED. FRIEND AT BS VISITING. C/L IN REACH.
--- NOTE | 2016-12-11 23:14 | NUR ---
REASSESSMENT PER FLOWSHEET. RT AT BS FOR RESP TX. I.S. TO 2500, GOOD COUGH. VSS. FRESH WATER AT BS. DENIES OTHER NEEDS.
[2016-12-12] VITALS (10 sets, daily range): BP systolic 91–137; BP diastolic 56–79
--- NOTE | 2016-12-12 01:20 | NUR ---
RESTING WITH EYES CLOSED, VSS.
--- NOTE | 2016-12-12 02:34 | NUR ---
RT AT BS FOR RESP TX AND I.S. - PULLED 2500 X 10.
--- NOTE | 2016-12-12 03:24 | NUR ---
REASSESSMENT PER FLOWSHEET, NO ACUTE CHANGES. PT AWAKENS EASILY, NO SIGN OF DISTRESS. DENIES NEEDS. C/L IN REACH.
--- NOTE | 2016-12-12 05:18 | NUR ---
TO XRAY AND BACK TO ROOM. UP IN CHAIR. FRESH ICE WATER AT BS. C/L IN REACH. VSS.
[2016-12-12 06:15] LABS: HEMATOCRIT 29.2 % (42.0-54.0); HEMOGLOBIN 9.5 g/dL (13.5-17.5); MCH 31.5 pg (26.0-34.0); MCHC 32.5 g/dL (31.0-37.0); MCV 96.7 fL (80.0-100.0); MEAN PLATELET VOLUME 9.9 fL (7.4-10.4); RBC 3.02 10x6/uL (4.20-6.10); RDW 14.6 % (11.5-14.5); WBC 16.4 10x3/uL (4.8-10.8)
[2016-12-12 06:39] LABS: ANION GAP 13.3 mmol/L (8-16); CALCIUM 8.5 mg/dL (8.5-10.1); CARBON DIOXIDE 27.6 mmol/L (21.0-32.0); CREATININE - SERUM 1.3 mg/dL (0.6-1.3); POTASSIUM - SERUM 3.9 mmol/L (3.5-5.1)
--- NOTE | 2016-12-12 07:15 | NUR ---
SHIFT ASSESSMENT VIA FLOWSHEET, SEE FOR DETAILS.
[2016-12-12] MEDS ORDERED: HYDROCODONE-APA1 TAB PO (08:11)
--- NOTE | 2016-12-12 09:20 | NUR ---
LACHELLE CORONA RN AT BEDSIDE TO D/C PT TPM.
[2016-12-12] MEDS ORDERED: CORDARONE200 MG PO (09:40)
[2016-12-12] MEDS ORDERED: HEMOCYTE PLUS C1 CAP PO (09:40)
[2016-12-12] MEDS ORDERED: LOPRESSOR25 MG PO (09:41)
[2016-12-12] MEDS ORDERED: LASIX40 MG PO (09:42)
[2016-12-12] MEDS ORDERED: COLACE100 MG PO (09:43)
[2016-12-12] MEDS ORDERED: MIRALAX17 GM PO (09:44)
[2016-12-12] MEDS ORDERED: KLOR-CON 1010 MEQ PO (09:49)
--- NOTE | 2016-12-12 10:55 | NUR ---
PT TO FRONT ENTRANCE VIA WHEELCHAIR. ALL VALUABLES SENT HOME WITH PATIENT.
--- NOTE | 2016-12-12 17:49 | NUR ---
Patient Name: KENDALL TERRELL Admission Status: Elective Accout number: [id number] Admission Date: 12-04-2016 : 1950 Admission Diagnosis:ATHSCL HEART DISEASE OF [place] COR ART W UNSP ANG PCTRS Attending: LISET Current LOS: 8 Anticipated DC Date: 12-12-2016 Planned Disposition: Home with [facility] Primary Insurance: [employer] O Discharge Planning Comments: CM SPOKE WITH PT'S INSURANCE COMPANY TO INQUIRE ABOUT IN-NETWORK HH PROVIDERS. [facility] IS IN NETWORK AND PATIENT WOULD LIKE TO HAVE SERVICES WITH THEM. CM SPOKE TO BATSHEVA AT [facility] TO INFORM OF REFERRAL AND FAXED ORDER/REFERRAL TO [facility] AND [facility] WILL CONTACT PATIENT TO ARRANGE FIRST HH VISIT. NO OTHER DC NEEDS VOICED AT THIS TIME. Sap Pi Developer: Lennie Taylor RN, CM
--- NOTE | 2017-01-03 18:31 | DS ---
PATIENT:KENDALL JACKSON :[birth year] MEDICAL RECORD: [id number] DISCHARGE SUMMARY ADMISSION DATE: 12/04/16 DISCHARGE DATE: 12/12/16 DISCHARGE DIAGNOSES: 1. 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 2. Hypercholesterolemia. 3. Family history of ischemic heart disease. 4. Hypothyroidism. 5. Obstructive sleep apnea. 6. Premature atrial contractions. 7. Paroxysmal atrial fibrillation. HOSPITAL COURSE: Mr. Jackson was admitted to the hospital and underwent aortocoronary artery bypass. Postoperatively, he did well and had no problems with bleeding or infection. He had an episode of atrial fibrillation paroxysmally as well as premature atrial contractions. He responded well to Cordarone. At the time of discharge, his incisions are healing well. His chest is clear. His heart is in a regular rhythm. He is ambulating and taking a diet and eager to go home. He has been given discharge instructions and wound precautions and will be seen as above. TRANSINT:[id number] Voice Confirmation ID: [id number] DOCUMENT ID: [id number] MARCE LOMELI MD at 1831 CC: [id number] DICTATION DATE: 12/29/16 1239 HAND CLIPPER: 12/30/16 0126 DIS IN 12/12/16 [address] [place] [address]
== END 2016-12-12 11:00 | disposition home health service (06) | DRG 236 ==
LOC: D.ICU 05:06 → D.SDCHOLD 05:06 → D.CVICU 05:06 → D.SDCHOLD 07:30 → D.ICU 10:59 → D.CVICU 12-05 11:13
PROVIDERS: ADMIT Internal Medicine Cardiovascular Disease
PROC: 021209W Bypass Coronary Artery, Three Arteries from Aorta with Autologous Venous Tissue, Open Approach (ICD-10-PCS; 2016-12-04)
PROC: 06BP0ZZ Excision of Right Saphenous Vein, Open Approach (ICD-10-PCS; 2016-12-04)
PROC: 5A1221Z Performance of Cardiac Output, Continuous (ICD-10-PCS; 2016-12-04)
PROC: 02100AC Bypass Coronary Artery, One Artery from Thoracic Artery with Autologous Arterial Tissue, Open Approach (ICD-10-PCS; principal; 2016-12-04 07:30)
DX: I25.119 Atherosclerotic heart disease of native coronary artery with unspecified angina pectoris (principal); E78.00 Pure hypercholesterolemia, unspecified; Z82.49 Family history of ischemic heart disease and other diseases of the circulatory system; E03.9 Hypothyroidism, unspecified; G47.30 Sleep apnea, unspecified; I49.1 Atrial premature depolarization; I48.91 Unspecified atrial fibrillation

== ENCOUNTER → 2016-12-27 12:39 | Outpatient (CLI) | payer BC ==
[2016-12-06 09:41] VITALS: BMI 42.7
[~2016-12-27 12:39] MED LIST changes: +BENADRYL25 MG PO; +COLACE100 MG PO; +CORDARONE200 MG PO; +HEMOCYTE PLUS C1 CAP PO; +HYDROCODONE-APA1 TAB PO; +KLOR-CON 1010 MEQ PO; +LASIX40 MG PO; +LOPRESSOR25 MG PO; +MIRALAX17 GM PO; +SUPER B COMPLE150 MG PO
[2016-12-27 13:04] LABS: HEMATOCRIT 36.7 % (42.0-54.0); HEMOGLOBIN 11.6 g/dL (13.5-17.5); MCH 30.6 pg (26.0-34.0); MCHC 31.6 g/dL (31.0-37.0); MCV 96.8 fL (80.0-100.0); MEAN PLATELET VOLUME 10.1 fL (7.4-10.4); RBC 3.79 10x6/uL (4.20-6.10); RDW 13.9 % (11.5-14.5); WBC 6.9 10x3/uL (4.8-10.8)
[2016-12-27 13:13] LABS: ANION GAP 13.1 mmol/L (8-16); CALCIUM 8.9 mg/dL (8.5-10.1); CARBON DIOXIDE 30.8 mmol/L (21.0-32.0); CREATININE - SERUM 1.5 mg/dL (0.6-1.3); POTASSIUM - SERUM 3.9 mmol/L (3.5-5.1)
== END | disposition home or self-care (01) ==
LOC: D.RAD 08:30
PROVIDERS: Internal Medicine Cardiovascular Disease
DX: D64.9 Anemia, unspecified (principal); J90 Pleural effusion, not elsewhere classified

== ENCOUNTER 2017-11-20 11:01 | Outpatient (CLI) | payer MEDICARE, OTHER ==
[~2017-11-20] VITALS: Ht 177.8 cm; Wt 125.0 kg
--- NOTE | ~2017-11-20 | HEMODYNAMI ---
PATIENT:KENDALL TERRELL MEDICAL RECORD: [id number] : 54 LOCATION:[facility] ADMISSION DATE: 11/20/17 Generatedon:11/20/201715:01 Patient name: KENDALL TERRELL Patient #: [id number] SSN: D OB: 1950 Date of study: 11/20/2017 Page: Of Hemodynamic Procedure Report Patient Data Patient Demographics Procedure consent was obtained First Name: KENDALL Gender: Male Last Name: XANDER : 1950 Middle Initial: A Age: 67 year(s) Patient #: [id number] Race: Ethnicity: or Additional ID: [id number] Contact details [address]: [address] [place] [address] State: [place] City: [place] Zip code: [address] Past Medical History Allergies: No known allergies Admission Admission Data Admission Date: 11/20/2017 Admission Time: 11:01 Admit Source: Other Procedure Procedure Types Cath Procedure Diagnostic Procedure LHC LHC w/Coronaries w/Grafts Sedation Charges Moderate Sedation up to 30 minutes Procedure Description Procedure Date Procedure Date: 11/20/2017 Procedure Start Time: 14:41 Procedure End Time: 14:59 Procedure Staff Name Function Jefry Cabrera MD Performing Physician Fernando Rubi RN Nurse Kathy Vizcaino RT Scrub Makayla Wood RT Monitor Procedure Data Cath Procedure Fluoroscopy Diagnostic fluoroscopy Total fluoroscopy Time: 4.7 time: 4.7 min min Diagnostic fluoroscopy Total fluoroscopy dose: 436 dose: 436 mGy mGy Contrast Material Contrast Material Type Amount (ml) Isovue 300 80 Entry Location Entry Primary Successful Side Size Upsize Upsize Entry Closure Succes sful Closure Location (Fr) 1 (Fr) 2 (Fr) Remarks Device Remarks Femoral Right 5 Fr Exoseal artery Estimated blood loss: 5 ml Diagnostic catheters Device Type Used For End Catheter Placement MULTIPACK JL 4.0 5Fr Left Coronary catheter Angiography MULTIPACK 3DRC 5Fr Right Coronary catheter Angiography DIAGNOSTIC AR MOD 5Fr Multi-vessel Catheter ([id number]) Angiography DIAGNOSTIC IM 5Fr Multi-vessel catheter ([id number]) Angiography MULTIPACK Pigtail 5 Fr LV Angiography catheter Procedure Complications No complications Procedure Medications Medication Administration Route Dosage Oxygen NC 2 l/min Heparin Flush Bag added to field 2 bags (1000units/500ml NS) 0.9% NaCl I.V. 100 ml/hr Fentanyl I.V. 50 mcg Versed I.V. 1 mg Fentanyl I.V. 50 mcg Versed I.V. 1 mg Fentanyl I.V. 50 mcg Fentanyl I.V. 50 mcg Hemodynamics Rest Heart Rate: 53 (bpm) Pressure Samples Time Site Value (mmHg) Purpose Heart Use Rate(bpm) 14:54 LV 165/8,36 Snapshot 58 14:54 AO 149/88(113) Pullback 58 14:54 LV 161/9,34 Pullback 58 Gradients Valve Time Site 1 Site 2 Mean SEP/DFP Peak To Heart Use (mmHg) (sec/min) Peak Rate (mmHg) (bpm) Aortic 14:54 LV AO 11 19 12 58 161/9,34 149/88(113) Calculations Valve P-P Mean Valve Index Valve Source Name Gradient Area Flow (cm2) Aortic 12 11 12 11 Snapshots Pre Cath Intra NCS Post Cath Vital Signs Time Heart Resp SPO2 etCO2 NIBP (mmHg) Rhythm Pain Sedation Rate (ipm) (%) (mmHg) Status Level (bpm) 14:19:52 49 17 100 0 132/74(102) NSR 0 (11) 10(A) , No pain 14:24:57 53 16 94 38.4 136/85(106) NSR 0 (11) 10(A) , No pain 14:29:19 48 16 89 39.2 134/82(121) NSR 0 (11) 10(A) , No pain 14:33:37 49 16 98 33.1 144/86(116) NSR 0 (11) 10(A) , No pain 14:37:59 50 17 98 30.1 140/82(120) NSR 0 (11) 10(A) , No pain 14:43:31 51 16 98 3.7 121/80(91) NSR 0 (11) 9(A) , No pain 14:47:47 53 16 93 0 136/79(113) NSR 0 (11) 9(A) , No pain 14:52:09 57 17 97 15.8 143/84(120) NSR 0 (11) 9(A) , No pain 14:56:34 58 16 98 28.6 141/87(114) NSR 0 (11) 9(A) , No pain 14:58:22 56 10 98 24.8 131/85(108) NSR 0 (11) 9(A) , No pain Medications Time Medication Route Dose Verified Delivered Reason Notes Effec tiveness by by 14:22:46 Oxygen NC 2 Jefry Fernando used for l/min Rick Rubi RN procedure 14:22:57 Heparin Flush added 2 Jefry Fernando used for Bag to bags Rick Rubi RN procedure (1000units/500ml field NS) 14:23:08 0.9% NaCl I.V. 100 Jefry Fernando Per ml/hr Rick Rubi RN physician 14:38:21 Fentanyl I.V. 50 Jefry Fernando for mcg Rick Rubi RN sedation 14:38:28 Versed I.V. 1 mg Jefry Fernando for Rick Rubi RN sedation 14:41:08 Fentanyl I.V. 50 Jefry Fernando for mcg Rick Rubi RN sedation 14:41:11 Versed I.V. 1 mg Jefry Fernando for Rick Rubi RN sedation 14:43:48 Fentanyl I.V. 50 Jefry Fernando for mcg Rick Rubi RN sedation 14:47:08 Fentanyl I.V. 50 Jefry Fernando for mcg Rick Rubi RN sedation Procedure Log Time Note 14:00:23 Fernando Rubi RN sent for patient. Start room use. 14:11:04 Informed consent obtained and on chart 14:11:06 Admit Source: Other 14:11:21 Diagnostic Cath status Elective 14:11:27 Time tracking: Regular hours 14:11:30 Plan of Care:Hemodynamics will remain stable., Cardiac rhythm will remain stable., Comfort level will be maintained., Respiratory function will remain adequate., Patient/ family verbilizes understanding of procedure., Procedure tolerated without complication., Recovers from procedure without complications.. 14:11:34 Patient received from Pre/Post Procedure Room to [facility] 3 Alert and oriented. Tansferred to table in Supine position. 14:11:35 Warm blankets applied, and hosea hugger turned on for patient comfort. 14:11:35 Correct patient and procedure confirmed by team. 14:11:36 ECG and BP/O2 sat monitors applied to patient. 14:11:56 H&P Date Dictated: 11/12/2017 Within 30 days and on chart., H&P Addendum completed by physician on day of procedure. (MUST COMPLETE FOR ALL OUTPATIENTS). 14:18:38 Vital chart was started 14:22:46 Oxygen 2 l/min NC was administered by Fernando Rubi RN; used for procedure; 14:22:57 Heparin Flush Bag (1000units/500ml NS) 2 bags added to field was administered by Fernando Rubi RN; used for procedure; 14:23:08 0.9% NaCl 100 ml/hr I.V. was administered by Fernando Rubi RN; Per physician; 14:26:28 Baseline sample Acquired. 14:26:38 Rhythm: sinus rhythm 14:26:39 Full Disclosure recording started 14:26:41 Pre-procedure instructions explained to patient. 14:26:42 Pre-op teaching completed and patient verbalized understanding. 14:26:43 Family in waiting room. 14:26:45 Patient NPO since Midnight. 14:27:04 Is the patient allergic to Iodine/contrast media? No. 14:27:05 Was the patient premedicated? No 14:27:06 Is patient on blood thinner?No 14:27:08 Patient diabetic? No. 14:27:10 Previous problem with sedation/anesthesia? No ? 14:27:12 Snore? Yes 14:27:12 Sleep apnea? Yes 14:27:13 Deviated septum? No 14:27:14 Opens mouth fully? Yes 14:27:15 Sticks out tongue? Yes 14:27:17 Airway obstruction? No ? 14:27:20 Dentures? No ? 14:27:24 Pre procedure: right dorsailis pedis pulse 1+ Palpable, but thready & weak; easily obliterated 14:27:26 Pre procedure: left dorsailis pedis pulse 1+ Palpable, but thready & weak; easily obliterated 14:27:28 Patient pain scale 0/10 ?. 14:27:46 IV patent on arrival in left hand with 0.9% NaCl at [facility]. 14:28:29 Lab results completed and on chart. 14:28:36 Right groin area was prepped with chlora-prep and draped in sterile fashion 14::36 Alarms reviewed by R. N. 14::37 Sharps counted by scrub and verified by R.N. 14::38 Physician arrived 14:38 --------ALL STOP TIME OUT------ 14:28:40 Final Timeout: patient, procedure, and site verified with staff and physician. All members of the team are in agreement. 14:28:42 Right groin site verified by team. 14:28:46 Physical assessment completed. ASA score P 2 - A patient with mild systemic disease as per Jefry Cbarera MD. 14:28:49 Sedation plan: IV Moderate Sedation Medication:Versed, Fentanyl 14:28:53 Use device set Femoral Dx 14:29:02 ACIST Syringe (07608) opened to sterile field. 14:29:03 Bag Decanter (2002S) opened to sterile field. 14:29:04 Medline Cath Pack ([id number]) opened to sterile field. 14:29:05 SHEATH 5FR Villard (JXW291) opened to sterile field. 14:29:06 DIAGNOSTIC WIRE .035 260cm J wire (270135) opened to sterile field. 14:29:07 ACIST Hand Control (14751) opened to sterile field. 14:29:07 ACIST Manifold (83829) opened to sterile field. 14:29:07 DIAGNOSTIC Multipack 5Fr catheter set (SI6144) opened to sterile field. 14:29:08 Tegaderm 4 x 4 (1626W) opened to sterile field. 14:38:21 Fentanyl 50 mcg I.V. was administered by Fernando Rubi RN; for sedation; 14:38:28 Versed 1 mg I.V. was administered by Fernando Rubi RN; for sedation; 14:41:08 Fentanyl 50 mcg I.V. was administered by Fernando Rubi RN; for sedation; 14:41:11 Versed 1 mg I.V. was administered by Fernando Rubi RN; for sedation; 14:41:51 Procedure started. 14:41:55 Local anesthetic to right femoral artery with Lidocaine 2% by Jefry Cabrera MD.INITIAL ACCESS ONLY 14:42:05 A 5 Fr sheath was inserted into the Right Femoral artery 14:43:48 Fentanyl 50 mcg I.V. was administered by Fernando Rubi RN; for sedation; 14:44:37 A MULTIPACK JL 4.0 5Fr catheter was advanced over the wire and used for Left Coronary Angiography. 14:45:03 LCA angiography performed. 14:45:06 Injector settings: Ml/sec: 3, Volume: 6, 14:45:53 Catheter removed. 14:46:00 A MULTIPACK 3DRC 5Fr catheter was advanced over the wire and used for Right Coronary Angiography. 14:46:49 Catheter removed. 14:46:55 A DIAGNOSTIC AR MOD 5Fr Catheter ([id number]) was advanced over the wire and used for Multi-vessel Angiography. 14:46:59 RCA angiography performed. 14:47:02 Injector settings: Ml/sec: 3, Volume: 6, 14:47:08 Fentanyl 50 mcg I.V. was administered by Fernando Rubi RN; for sedation; 14:48:14 SVG angiography performed. 14:49:37 SVG angiography performed. 14:49:45 Catheter removed. 14:49:52 A DIAGNOSTIC IM 5Fr catheter ([id number]) was advanced over the wire and used for Multi-vessel Angiography. 14:51:37 YEAGER angiography performed. 14:52:04 Catheter removed. 14:52:21 A MULTIPACK Pigtail 5 Fr catheter was advanced over the wire and used for LV Angiography. 14:54:07 LV hemodynamics recorded. 14:54:08 LV gram done using ENCISO 14:54:10 Injector settings: Ml/sec: 5, Volume: 15, 14:54:20 EF : 55 % 14:54:39 Catheter removed. 14:54:41 EXOSEAL 5Fr (EX500) opened to sterile field. 14:54:51 Sheath removed intact; hemostasis achieved with Exoseal to the Right Femoral artery. 14:54:55 Procedure ended.(Physican Out) 14:55:23 Fluoroscopy time 04.70 minutes. 14:55:28 Fluoroscopy dose: 436 mGy 14:55:28 Flurop Dose total: 436 14:55:37 Contrast amount:Isovue 300 80ml. 14:55:39 Sharps counted by scrub and verified by R.N. 14:56:19 Insertion/operative site no bleeding no hematoma. 14:56:48 Post-op/insertion site Right Femoral artery dressed using a 4 x 4 and Tegaderm. 14:56:51 Post right femoral artery:stable 14:58:15 Post Procedure Pulses reassessed and unchanged 14:58:21 Post procedure rhythm: unchanged. 14:58:26 Estimated blood loss: 5 ml 14:58:27 Post procedure instruction explained to patient.Patient verbalizes understanding. 14:58:28 Patient needs reinforcement of post procedure teaching. 14:58:38 Procedure type changed to Cath procedure, Diagnostic procedure, LHC, LHC w/Coronaries w/Grafts, Sedation Charges, Moderate Sedation up to 30 minutes 14:58:48 Procedure and supply charges have been captured, reviewed, submitted and are correct. 14:58:52 Procedure Complication : No complications 14:58:54 Vital chart was stopped 14:58:54 See physician's report for complete and final results. 14:58:59 Report given to Pre/Post Procedure Room. 14:59:02 Patient transfered to Pre/Post Procedure Room with Stretcher. 14:59:04 Procedure ended. 14:59:04 Full Disclosure recording stopped 14:59:09 End room use (Document Last) Device Usage Item Name Manufacture Quantity Catalog Hospital Part Current Minimal L ot# / Number Charge Number Stock Stock Serial# Code ACIST Acist 1 47559 458325 672413 306631 20 Syringe Medical (75714) Systems Inc Bag Microtek 1 2001S 918775 11638 641039 5 Decanter Medical Inc. () Medline Cardinal 1 [id number] 267443 76367 853427 5 Cath Pack Health ([id number]) SHEATH 5FR Terumo 1 [id number] 625058 013444 262715 40 Villard (VPF081) DIAGNOSTIC [facility] 1 802181 498784 243497 894368 30 WIRE .035 260cm J wire (429952) ACIST Hand Acist 1 45134 570850 181018 306972 5 Control Medical (64762) Systems Inc ACIST Acist 1 75301 967643 116591 988404 5 Manifold Medical (08489) Systems Inc DIAGNOSTIC Cardinal 1 [id number] 389994 25185 849632 30 Multipack Health 5Fr catheter set (EE5546) Tegaderm 4 3M 1 1626W 961275 400401 036688 5 x 4 (1626W) MULTIPACK Cardinal 1 361003 5 JL 4.0 5Fr Health catheter MULTIPACK Cardinal 1 214510 5 3DRC 5Fr Health catheter DIAGNOSTIC Cardinal 1 160096G 427478 787568 019061 15 AR MOD 5Fr Health Catheter (917719T) DIAGNOSTIC Cardinal 1 [id number] 029575 523807 562471 5 IM 5Fr Health catheter (828977Y) MULTIPACK Cardinal 1 565332 5 Pigtail 5 Health Fr catheter EXOSEAL 5Fr Cardinal 1 EX500 143388 237284 083422 10 (EX500) Health Signature Audit [place] Stage Time Signature Unsigned Intra-Procedure 11/20/2017 Makayla Wood 3:01:21 PM RT(R) Signatures Monitor : Makayla Wood RT Signature : Date : Time : [id number] [place] [address]
[2017-11-20] MEDS ORDERED: ULTRAM50 MG PO (11:36)
[2017-11-20] MEDS ORDERED: AMOXICILLIN500 M1 PO (11:37)
[2017-11-20 11:44] VITALS: BP 135/81; Ht 177.8 cm; Wt 125.0 kg
[2017-11-20 11:51] LABS: BASOPHILS 0.3 % (0-2); EOSINOPHILS 2.2 % (0-7); HEMATOCRIT 47.3 % (42.0-54.0); HEMOGLOBIN 15.8 g/dL (13.5-17.5); IMMATURE GRANULOCYTES 0.3 % (0-5); MCH 31.1 pg (26.0-34.0); MCHC 33.4 g/dL (31.0-37.0); MCV 93.1 fL (80.0-100.0); MEAN PLATELET VOLUME 10.7 fL (7.4-10.4); MONOCYTES 8.7 % (2-11); NEUTROPHILS 67.5 % (40-80); RBC 5.08 10x6/uL (4.20-6.10); RDW 13.5 % (11.5-14.5)
[2017-11-20 12:00] LABS: PLATELET COUNT 199 10x3/uL (130-400)
[2017-11-20 12:13] LABS: CALCIUM 9.1 mg/dL (8.5-10.1); CARBON DIOXIDE 28.2 mmol/L (21.0-32.0); CREATININE - SERUM 1.3 mg/dL (0.6-1.3); POTASSIUM - SERUM 4.2 mmol/L (3.5-5.1)
== END 2017-11-20 17:24 | disposition home or self-care (01) ==
LOC: D.CATH 11:01
PROVIDERS: Internal Medicine Cardiovascular Disease
DX: I25.119 Atherosclerotic heart disease of native coronary artery with unspecified angina pectoris (principal); R53.83 Other fatigue; R06.02 Shortness of breath; Z01.812 Encounter for preprocedural laboratory examination

== ENCOUNTER → 2018-05-21 15:37 | Outpatient (CLI) | payer MEDICARE, OTHER ==
[2017-11-20 11:44] VITALS: BMI 39.5
[~2018-05-21 15:37] MED LIST changes: +AMOXICILLIN500 M1 PO; +ULTRAM50 MG PO
== END | disposition home or self-care (01) ==
LOC: D.CT 15:37
DX: R91.1 Solitary pulmonary nodule (principal)

== ENCOUNTER 2018-07-24 06:30 | Day surgery (SDC) | payer MEDICARE, OTHER ==
[2018-07-22 15:50] LABS: HEMATOCRIT 43.8 % (42.0-54.0); HEMOGLOBIN 15.1 g/dL (13.5-17.5); MCH 31.7 pg (26.0-34.0); MCHC 34.5 g/dL (31.0-37.0); MEAN PLATELET VOLUME 10.8 fL (7.4-10.4); RBC 4.76 10x6/uL (4.20-6.10); RDW 13.4 % (11.5-14.5); WBC 7.7 10x3/uL (4.8-10.8)
[~2018-07-24] VITALS: Ht 170.2 cm; Wt 124.7 kg
--- NOTE | ~2018-07-24 | OP ---
PATIENT NAME: KENDALL TERRELL MEDICAL RECORD: [id number] :54 LOCATION:[facility] ADMISSION DATE: SURGEON: STACY GAMBOA MD DATE OF OPERATION: 07/24/2018 SURGEON: Stacy Gamboa MD ANESTHESIA: Jelani Tarango CRNA. DIAGNOSIS: Elevated PSA of 5.4. PROCEDURE: Transrectal ultrasound and prostate biopsy. FINDINGS: 21 gram prostate with intraprostatic stones. BLOOD LOSS: None. CLINICAL HISTORY: This is a 68-year-old male who was found to have an elevated PSA of 5.4. He has no family history of prostate cancer. He comes today to have a prostate biopsy performed. On rectal examination, no nodules were palpated on the prostate. He is not allergic to any medications. 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 DESCRIPTION OF PROCEDURE: The patient was given IV sedation. He was placed in dorsal lithotomy position. The transrectal ultrasound probe was introduced and prostate size measurements were obtained. The prostate was small and measured at 21 grams. Intraprostatic calcifications were seen. Sextant biopsies were obtained at least 3 cores from each sextant. Once all the specimens were obtained, the procedure was terminated. I will see the patient in followup in 2 weeks' time to review the pathology with him. TRANSINT:[id number] Voice Confirmation ID: [id number] DOCUMENT ID: [id number] STACY GAMBOA MD at 1049 CC: [id number] DICTATION DATE: 07/24/18 0954 RN PRACTITIONER: 07/24/18 1039 [facility] [address] [place] [address]
[~2018-07-24 06:30] MED LIST changes: +CENTRUM SILVER1 EAC3; +CO Q-10100 MG PO
[2018-07-24 08:01] VITALS: BP 130/83; Ht 170.2 cm; Wt 124.7 kg
== END 2018-07-24 11:30 | disposition home or self-care (01) ==
LOC: D.PAN 06:30 → D.OPS 12:30 → D.PAN 12:30
PROVIDERS: Anesthesiology
DX: C61 Malignant neoplasm of prostate (principal); N42.0 Calculus of prostate; Z01.812 Encounter for preprocedural laboratory examination

== ENCOUNTER → 2018-08-11 08:12 | Outpatient (CLI) | payer MEDICARE, OTHER ==
[2018-07-24 08:01] VITALS: BMI 43.2
== END | disposition home or self-care (01) ==
LOC: D.NM 08:12
DX: C61 Malignant neoplasm of prostate (principal)

== ENCOUNTER → 2019-01-20 09:45 | Outpatient (CLI) | payer MEDICARE, BC ==
[2018-07-24 08:01] VITALS: BMI 43.2
== END | disposition home or self-care (01) ==
LOC: D.CT 09:45
PROVIDERS: ATTEND Family Medicine
DX: R91.1 Solitary pulmonary nodule (principal)

== ENCOUNTER → 2019-02-09 12:01 | Outpatient (CLI) | payer MEDICARE, BC ==
[2018-07-24 08:01] VITALS: BMI 43.2
[2019-02-09 12:48] LABS: ALBUMIN 3.9 g/dL (3.4-5.0); BILIRUBIN - DIRECT 0.08 mg/dL (0.00-0.30); BILIRUBIN - INDIRECT 0.3 mg/dL (0.00-1.00); BILIRUBIN - TOTAL 0.38 mg/dL (0.2-1.3)
== END | disposition home or self-care (01) ==
LOC: D.LAB 12:01
PROVIDERS: ATTEND Urology
DX: C61 Malignant neoplasm of prostate (principal)

== ENCOUNTER → 2019-08-25 08:02 | Outpatient (CLI) | payer MEDICARE, BC ==
[2018-07-24 08:01] VITALS: BMI 43.2
== END | disposition home or self-care (01) ==
LOC: D.HCCECHO 08:02
PROVIDERS: ATTEND Internal Medicine Cardiovascular Disease
DX: I25.10 Atherosclerotic heart disease of native coronary artery without angina pectoris (principal)